=== PATIENT | female | born 1960 | race Caucasian/White ===

== ENCOUNTER → 2020-01-04 16:37 | Outpatient (CLI) | payer MEDICARE, SELFPAY ==
--- NOTE | ~2020-01-04 | XR_ITS ---
EXAMINATION: XR chest 2V EXAM DATE: 01/04/2020 16:56 INDICATION: Wheezing. TECHNIQUE: Frontal and lateral projections of the chest obtained and reviewed. Comparison is made to prior examination from 03/30/2019. FINDINGS: The lungs are clear. There are no pleural effusions. The cardiomediastinal silhouette is within normal limits. There is no pneumothorax suspected. Patient has diffuse idiopathic skeletal h yperostosis (DISH). IMPRESSION: No acute cardiopulmonary findings. Reviewed, dictated and finalized at location A.
== END ==
PROVIDERS: PCP Family Medicine; Visit Provider Nurse Practitioner Family
DX: R06.2 Wheezing (principal)
CPT/HCPCS: 71046

== ENCOUNTER 2020-05-04 10:16 | Outpatient (CLI) | payer MEDICARE, SELFPAY ==
[2020-05-04 10:41] LABS: Basophils Absolute Auto 0.1 K/mm3 (0.0-0.1); Basophils Percent Auto 0.8 % (0.2-1.2); Eosinophils Absolute Auto 0.2 K/mm3 (0-0.3); Eosinophils Percent Auto 2.5 % (0-4.4); Hematocrit 41.5 % (37.0-47.0); Hemoglobin 14.5 g/dL (12.0-15.0); Immature Granulocyte Absolute 0.01 K/mm3 (0.00-0.031); Immature Granulocyte Percent A 0.2 % (0-0.5); Lymphocytes Absolute Auto 1.37 K/mm3 (0.9-3.2); Lymphocytes Percent Auto 21.8 % (18.3-44.2); Mean Corpuscular HGB Conc 34.9 g/dl (32-36); Mean Corpuscular Hemoglobin 31.2 pg (26-34); Mean Corpuscular Volume 89.2 fl (80-100); Mean Platelet Volume 9.7 fl (7.4-10.4); Monocytes Absolute Auto 0.6 K/mm3 (0.1-0.6); Monocytes Percent Auto 9.2 % (2.6-8.5); Neutrophils Absolute Auto 4.1 K/mm3 (1.3-6.7); Neutrophils Percent Auto 65.5 % (45.5-73.1); Platelet Count Result 234 k/mm3 (150-375); Red Blood Count 4.65 M/mm3 (4.2-5.4); Red Cell Distribution Width 11.9 % (11.5-14.5); White Blood Count 6.3 K/mm3 (4.5-10.0)
[2020-05-04 10:54] LABS: Alanine Aminotransferase 38 U/L (4-35); Albumin Level 4.5 g/dL (3.5-5.1); Alkaline Phosphatase 63 U/L (38-126); Anion Gap 9 mmol/L (8-16); Aspartate Amino Transferase 33 U/L (14-36); Bilirubin,Total 0.9 mg/dL (0.2-1.3); Blood Urea Nitrogen 12 mg/dL (7-17); Calcium 9.2 mg/dL (8.4-10.2); Carbon Dioxide 32 mmol/L (22-30); Chloride 88 mmol/L (98-107); Cholesterol 125 mg/dL (0-200); Estimated Glomerular Filt Rate > 60; Glucose 113 mg/dL (65-105); HDL Direct 34 mg/dL; Potassium 2.9 mmol/L (3.4-5.0); Sodium 129 mmol/L (137-145); Triglycerides 96 mg/dL (<150)
[2020-05-04 10:57] LABS: Hemoglobin A1C 5.2 % (<5.7)
[2020-05-04 11:05] LABS: LDL Cholesterol Direct 65 mg/dL
== END 2020-05-04 10:17 | disposition home or self-care (01) ==
PROVIDERS: PCP Nurse Practitioner; Visit Provider Nurse Practitioner
DX: E78.5 Hyperlipidemia, unspecified (principal); I10 Essential (primary) hypertension; E11.9 Type 2 diabetes mellitus without complications
CPT/HCPCS: 36415; 80053; 80061; 83036; 85025

== ENCOUNTER 2020-08-07 11:49 | Outpatient (CLI) | payer MEDICARE, SELFPAY ==
--- NOTE | ~2020-08-07 | US_ITS ---
EXAMINATION: US carotid duplex BI DATE: 08/07/2020 12:33 INDICATION: Dizziness and giddiness. TECHNIQUE: Grayscale, color Doppler, and pulsed Doppler images of the cervical carotid arteries were obtained. The degree of vessel stenosis is placed in one of the following categories: normal, <50%, 5 0-69%, >=70% but less than near-occlusion, near-occlusion, or total occlusion. Note that percent sten osis relative to normal distal artery lumen diameter is indirectly measured from velocity measurement s as described by Domenico, et al. Radiology 2003; 229:340-346. COMPARISON: Ultrasound 05/27/2008 FINDINGS: RIGHT: The right common carotid artery (CCA) peak systolic velocity (PSV) is 115 cm/s. The right internal ca rotid artery (ICA) PSV is 99 cm/s. The right ICA end-diastolic velocity (EDV) is 32 cm/s. The right I CA/CCA PSV ratio is 0.9. Grayscale and color Doppler images yield an estimate of 0% diameter reductio n from plaque in the ICA. There is antegrade flow in the right vertebral artery. LEFT: The left CCA PSV is 102 cm/s. The left ICA PSV is 73 cm/s. The left ICA EDV is 21 cm/s. The left ICA/ CCA PSV ratio is 0.7. Grayscale and color Doppler images yield an estimate of 0% diameter reduction f rom plaque in the ICA. There is antegrade flow in the left vertebral artery. IMPRESSION: 1. Normal internal carotid arteries. Reviewed, dictated and finalized at location B. E FITTER
== END 2020-08-07 11:50 | disposition home or self-care (01) ==
PROVIDERS: PCP Family Medicine; Visit Provider Nurse Practitioner
DX: R42 Dizziness and giddiness (principal)
CPT/HCPCS: 93880

== ENCOUNTER 2020-09-04 08:58 | Outpatient (CLI) | payer MEDICARE, SELFPAY ==
--- NOTE | 2020-09-04 09:15 | EST_ITS ---
Patient Info Name: Perla Manzano Age: 60 years : 1960 Gender: Female Ht: 69 in Wt: 270 lbs BSA: 2.50 m2 Exam Date: 09/04/2020 9:29 AM Exam Location: [facility] Stress Patient Status: Outpatient Admit Date: 09/04/2020 Staff Ordering Physician: Danna Plaza NP Attending Provider: RICHARD SHERIDAN Exercise Technologist: Kriss May CT Exercise Physician: Richadr Sheridan DO Exam Type: CA stress test treadmill Study Info A regadenoson stress test was performed. Summary 1. 1. Negative Kuldip exercise stress test for ischemic ST changes by ECG criteria. However, patient achieved only 72% MPHR for age group which reduces sensitivity of the test. 2. 2. Reduced functional capacity, achieving 7 METs of workload. 3. 3. Appropriate HR response to exercise. 4. 4. Appropriate HR recovery at 1 minute post exercise. 5. 5. No imaging with stress testing. 6. 6. Patient informed of the above results. Protocol: Kuldip Stress ECG Details Stage: REST Duration (min): 54 min : 38 sec Speed (mph): 0.0 Grade (%): 0 HR (bpm): 53 SBP (mmHg): 121 DBP (mmHg): 66 METS: --- Stage: STAGE 1 Duration (min): 1 min : 0 sec Speed (mph): 1.7 Grade (%): 10 HR (bpm): 81 SBP (mmHg): 121 DBP (mmHg): 66 METS: --- Stage: STAGE 1 Duration (min): 2 min : 0 sec Speed (mph): 1.7 Grade (%): 10 HR (bpm): 94 SBP (mmHg): 121 DBP (mmHg): 66 METS: --- Stage: STAGE 1 Duration (min): 3 min : 0 sec Speed (mph): 1.7 Grade (%): 10 HR (bpm): 98 SBP (mmHg): 127 DBP (mmHg): 54 METS: --- Stage: STAGE 2 Duration (min): 1 min : 0 sec Speed (mph): 2.5 Grade (%): 12 HR (bpm): 107 SBP (mmHg): 127 DBP (mmHg): 54 METS: --- Stage: STAGE 2 Duration (min): 2 min : 0 sec Speed (mph): 2.5 Grade (%): 12 HR (bpm): 109 SBP (mmHg): 162 DBP (mmHg): 56 METS: --- Stage: STAGE 2 Duration (min): 2 min : 59 sec Speed (mph): 2.5 Grade (%): 12 HR (bpm): 113 SBP (mmHg): 162 DBP (mmHg): 56 METS: --- Stage: RECOVERY Duration (min): 1 min : 0 sec Speed (mph): 0.0 Grade (%): 0 HR (bpm): 96 SBP (mmHg): 162 DBP (mmHg): 56 METS: --- Stage: RECOVERY Duration (min): 2 min : 0 sec Speed (mph): 0.0 Grade (%): 0 HR (bpm): 80 SBP (mmHg): 162 DBP (mmHg): 56 METS: --- Stage: RECOVERY Duration (min): 2 min : 49 sec Speed (mph): 0.0 Grade (%): 0 HR (bpm): 65 SBP (mmHg): 150 DBP (mmHg): 67 METS: --- Rest HR: 53 bpm Peak HR: 114 bpm Rest Sys BP: 121 mmHg Peak Sys BP: 162 mmHg Max Pred HR: 158 bpm % Max Pred HR: 72 % Target HR: 134 bpm Max RPP: 18,468 bpm*mmHg Puga Score: 1 Termination Reason: Shortness of breath Cardiac Symptoms: Shortness of breath Max ST Seg Deviation: -1.00 mm Total Time: 5 min : 59 sec Rest Chung BP: 66 mmHg Peak Chung BP: 56 mmHg Angina Score: None Total METS: 7.1 Resting ECG Sinus rhyth
== END 2020-09-04 08:59 | disposition home or self-care (01) ==
LOC: ANHCARD 08:59
PROVIDERS: PCP Nurse Practitioner; Visit Provider Nurse Practitioner
DX: R42 Dizziness and giddiness (principal)
CPT/HCPCS: 93017

== ENCOUNTER 2020-11-07 10:09 | Outpatient (CLI) | payer MEDICARE, SELFPAY ==
[2020-11-07 10:41] LABS: Basophils Absolute Auto 0.1 K/mm3 (0.0-0.1); Basophils Percent Auto 0.8 % (0.2-1.2); Eosinophils Absolute Auto 0.2 K/mm3 (0-0.3); Eosinophils Percent Auto 2.2 % (0-4.4); Hematocrit 47.7 % (37.0-47.0); Hemoglobin 15.5 g/dL (12.0-15.0); Immature Granulocyte Absolute 0.02 K/mm3 (0.00-0.031); Immature Granulocyte Percent A 0.3 % (0-0.5); Lymphocytes Absolute Auto 1.74 K/mm3 (0.9-3.2); Lymphocytes Percent Auto 24.1 % (18.3-44.2); Mean Corpuscular HGB Conc 32.5 g/dl (32-36); Mean Corpuscular Hemoglobin 30.5 pg (26-34); Mean Corpuscular Volume 93.7 fl (80-100); Mean Platelet Volume 10.2 fl (7.4-10.4); Monocytes Absolute Auto 0.6 K/mm3 (0.1-0.6); Monocytes Percent Auto 8.4 % (2.6-8.5); Neutrophils Absolute Auto 4.6 K/mm3 (1.3-6.7); Neutrophils Percent Auto 64.2 % (45.5-73.1); Platelet Count Result 220 k/mm3 (150-375); Red Blood Count 5.09 M/mm3 (4.2-5.4); Red Cell Distribution Width 12.8 % (11.5-14.5); White Blood Count 7.2 K/mm3 (4.5-10.0)
[2020-11-07 10:53] LABS: Alanine Aminotransferase 17 U/L (4-35); Albumin Level 4.5 g/dL (3.5-5.1); Alkaline Phosphatase 57 U/L (38-126); Anion Gap 6 mmol/L (8-16); Aspartate Amino Transferase 24 U/L (14-36); Bilirubin,Total 0.6 mg/dL (0.2-1.3); Blood Urea Nitrogen 14 mg/dL (7-17); Calcium 9.7 mg/dL (8.4-10.2); Carbon Dioxide 28 mmol/L (22-30); Chloride 102 mmol/L (98-107); Cholesterol 155 mg/dL (0-200); Estimated Glomerular Filt Rate > 60; Glucose 91 mg/dL (65-105); HDL Direct 51 mg/dL; Potassium 4.4 mmol/L (3.4-5.0); Sodium 136 mmol/L (137-145); Triglycerides 61 mg/dL (<150)
[2020-11-07 11:04] LABS: LDL Cholesterol Direct 77 mg/dL
[2020-11-07 11:27] LABS: MALB Creatinine Ratio 20.2 mg/g (0-30); Microalbumin Urine Random 19.8 mg/L (0-16.7)
[2020-11-07 11:35] LABS: Hemoglobin A1C 5.1 % (<5.7)
[2020-11-11 06:34] LABS: Triiodothyronine T3 Free 2.6 pg/mL (2.3-4.2)
== END 2020-11-07 10:10 | disposition home or self-care (01) ==
LOC: ANHLAB 10:12
PROVIDERS: PCP Nurse Practitioner; Visit Provider Nurse Practitioner
DX: E78.5 Hyperlipidemia, unspecified (principal); I10 Essential (primary) hypertension; E03.9 Hypothyroidism, unspecified; E11.9 Type 2 diabetes mellitus without complications
CPT/HCPCS: 36415; 80053; 80061; 82043; 83036; 84436; 84443; 84481; 85025

== ENCOUNTER 2021-01-22 09:37 | Outpatient (CLI) | payer MEDICARE, SELFPAY | END 2021-01-22 09:38 | disposition home or self-care (01) | LOC: ANHAUDASC 09:38 | PROVIDERS: PCP Nurse Practitioner; Visit Provider Otolaryngology | DX: H93.13 Tinnitus, bilateral (principal); H69.83 Other specified disorders of Eustachian tube, bilateral; H90.3 Sensorineural hearing loss, bilateral | CPT/HCPCS: 92557; 92567 ==

== ENCOUNTER 2021-01-24 16:35 | Emergency (ER) | payer MEDICARE, SELFPAY ==
[2021-01-24 16:37] VITALS: BP 163/64; PULSE 68; RESP 18; TEMP 36.4; O2SAT 99
--- NOTE | 2021-01-24 16:49 | PC.NURSE ---
Pt unable to provide urine sample at this time, states will cont to try - fluids infusing, declined straight cath.
--- NOTE | 2021-01-24 17:04 | ED.GENADULT ---
HPI - General Adult General Chief complaint: Urogenital-Female <Kev Adame PA-C - Last Filed: 01/24/21 18:51> Stated complaint: dysuria <Kev Adame PA-C - Last Filed: 01/24/21 18:51> Time Seen by Provider: 01/24/21 16:45 <Kev Adame PA-C - Last Filed: 01/24/21 18:51> Source: patient and RN notes reviewed <Kev Adame PA-C - Last Filed: 01/24/21 18:51> Mode of arrival: ambulatory <DAPHNE Goff Last Filed: 01/24/21 18:51> Limitations: no limitations <Kev Adame PA-C - Last Filed: 01/24/21 18:51> History of Present Illness HPI narrative: Patient is 60-year-old female who presents with urinary frequency and urgency nausea and suprapubic abdominal discomfort that began on Friday has persisted has not been seen for this complaint notes the only similar occurrence was a urinary tract infection in the past patient on arrival is in no distress has not taken anything for her symptoms no she has also had some loose stools <Kev Adame PA-C - Last Filed: 01/24/21 18:51> Related Data Allergies/adverse reactions: Allergies Allergy/AdvReac Type Severity Reaction Status Date / Time No Known Allergies Allergy Verified 01/24/21 17:04 <Kev Adame PA-C - Last Filed: 01/24/21 18:51> Review of Systems Review of Systems: All systems reviewed & are unremarkable except as noted in HPI and below <Kev Adame PA-C - Last Filed: 01/24/21 18:51> [facility] Past Medical History Medical History: Medical History (Updated 01/24/21 @ 18:50 by Kev Adame PA-C) Hypertension <DAPHNE Goff Last Filed: 01/24/21 18:51> Social History Social History: Social History Gender identity (if verbalized by the patient): Female <DAPHNE Goff Last Filed: 01/24/21 18:51> Exam Narrative: Exam Narrative: GENERAL: Well-appearing, obese, and in no acute distress. HEAD: Normocephalic, atraumatic. EYES: PERRLA and EOMI. ENT: Nares clear, no rhinorrhea or epistaxis. Mucous membranes moist. CHEST: Clear to auscultation. No respiratory distress. No wheezes rales or rhonchi HEART: Regular rate and rhythm. No murmur heard. Normal peripheral pulses. ABDOMEN: Soft, lower abdominal tenderness to palpation without rebound or guarding, nondistended EXTREMITIES: Normal range of motion. No edema. SKIN: Warm, dry, no rash. NEURO: No focal deficits. Alert and oriented x3. PSYCH: Normal mood and affect. <DAPHNE Goff Last Filed: 01/24/21 18:51> Course Course Emergency Course: Patient in the room no distress will be discharged home treated for urinary tract infection no other high risk components to the evaluation patient is afebrile nontoxic-appearing no distress <DAPHNE Goff Last Filed: 01/24/21 18:51> Vital Signs Vital signs: Vital Signs Temperature 36.4 C 01/24/21 16:37 Pulse Rate 68 01/24/21 16:37 Respiratory Rate 18 01/24/21 16:37 Blood Pressure 163/64 H 01/24/21 16:37 Pulse Oximetry 99 01/24/21 16:37 Temperature 36.4 C 01/24/21 16:37 Pulse Rate 78 01/24/21 17:56 Respiratory Rate 17 01/24/21 17:56 Blood Pressure 147/89 H 01/24/21 17:56 Pulse Oximetry 96 01/24/21 17:56 <DAPHNE Goff Last Filed: 01/24/21 18:51> Vital Signs Temperature 36.4 C 01/24/21 16:37 Pulse Rate 68 01/24/21 16:37 Respiratory Rate 18 01/24/21 16:37 Blood Pressure 163/64 H 01/24/21 16:37 Pulse Oximetry 99 01/24/21 16:37 Temperature 36.4 C 01/24/21 16:37 Pulse Rate 78 01/24/21 17:56 Respiratory Rate 17 01/24/21 17:56 Blood Pressure 147/89 H 01/24/21 17:56 Pulse Oximetry 96 01/24/21 17:56 <Gabriella Estevez MD - Last Filed: 01/24/21 18:52> Medical Decision Making MDM Narrative Medical decision making narrative: Patient afebrile nontoxic-appearing no
[2021-01-24] MEDS: SODIUM CHLORIDE 0.9% IV 1,000 ML 999 ML IV CONT ×2 (17:06→17:57)
[2021-01-24 17:15] LABS: Basophils Percent Auto 0.6 % (0.2-1.2); Eosinophils Absolute Auto 0.2 K/mm3 (0-0.3); Eosinophils Percent Auto 2.3 % (0-4.4); Hematocrit 44.3 % (37.0-47.0); Hemoglobin 14.7 g/dL (12.0-15.0); Immature Granulocyte Absolute 0.01 K/mm3 (0.00-0.031); Immature Granulocyte Percent A 0.1 % (0-0.5); Lymphocytes Absolute Auto 1.54 K/mm3 (0.9-3.2); Lymphocytes Percent Auto 21.8 % (18.3-44.2); Mean Corpuscular HGB Conc 33.2 g/dl (32-36); Mean Corpuscular Hemoglobin 31.1 pg (26-34); Mean Corpuscular Volume 93.9 fl (80-100); Mean Platelet Volume 9.8 fl (7.4-10.4); Monocytes Absolute Auto 0.9 K/mm3 (0.1-0.6); Monocytes Percent Auto 13.3 % (2.6-8.5); Neutrophils Absolute Auto 4.4 K/mm3 (1.3-6.7); Neutrophils Percent Auto 61.9 % (45.5-73.1); Platelet Count Result 153 k/mm3 (150-375); Red Blood Count 4.72 M/mm3 (4.2-5.4); Red Cell Distribution Width 12.8 % (11.5-14.5); White Blood Count 7.1 K/mm3 (4.5-10.0)
[2021-01-24 17:24] LABS: Alanine Aminotransferase 16 U/L (4-35); Albumin Level 4.1 g/dL (3.5-5.1); Alkaline Phosphatase 54 U/L (38-126); Anion Gap 5 mmol/L (8-16); Aspartate Amino Transferase 26 U/L (14-36); Bilirubin,Total 0.7 mg/dL (0.2-1.3); Blood Urea Nitrogen 14 mg/dL (7-17); Calcium 9.3 mg/dL (8.4-10.2); Carbon Dioxide 32 mmol/L (22-30); Chloride 100 mmol/L (98-107); Estimated CRCL calculation 74 ml/min; Estimated Glomerular Filt Rate 56; Glucose 93 mg/dL (65-105); Lipase 56 U/L (23-300); Potassium 3.7 mmol/L (3.4-5.0); Sodium 137 mmol/L (137-145)
--- NOTE | 2021-01-24 17:45 | PC.NURSE ---
Pt unable to provide urine sample, declines straight cath, requesting more time to try. Fluids infusing.
[2021-01-24 17:56] VITALS: BP 147/89; PULSE 78; RESP 17; O2SAT 96
[2021-01-24 18:26] LABS: Add Urine Microscopic? YES; Appearance Urine Cloudy (Clear); Bacteria Urine Trace /hpf; Bilirubin Urine Negative (Negative); Blood Urine 1+ (Negative); Color Urine Yellow (Yellow); Glucose Urine UA Negative (Negative); Ketones Urine Negative (Negative); Leukocyte Esterase Ur 3+ LEU/UL (Negative); Mucus Urine Rare /lpf; Nitrate Urine Negative (Negative); Protein Urine Negative (Negative); Squamous Epithelial Cell Urine Many /hpf (Few); Urobilinogen Urine Negative mg/dL (<2.0); WBC Urine 31-50 /hpf
[2021-01-24 18:57] VITALS: BP 138/64; PULSE 68; RESP 15; O2SAT 100
== END 2021-01-24 19:04 | disposition home or self-care (01) ==
PROVIDERS: Emergency Medicine Emergency Medical Services; Emergency Provider Emergency Medicine; PCP Nurse Practitioner
DX: N39.0 Urinary tract infection, site not specified (principal); I10 Essential (primary) hypertension
CPT/HCPCS: 36415; 80053; 81001; 83690; 85025; 87086; 96361; 96365; 99284; J0131; J7030

== ENCOUNTER 2021-05-03 11:37 | Outpatient (CLI) | payer MEDICARE, SELFPAY ==
[2021-05-03 13:32] LABS: Hemoglobin A1C 5.5 % (<5.7)
[2021-05-03 14:54] LABS: Free T4 Free Thyroxine 0.87 ng/mL (0.78-2.19)
== END 2021-05-03 11:38 | disposition home or self-care (01) ==
PROVIDERS: PCP Nurse Practitioner; Visit Provider Internal Medicine Endocrinology, Diabetes & Metabolism
DX: E03.9 Hypothyroidism, unspecified (principal); R73.03 Prediabetes
CPT/HCPCS: 36415; 83036; 84439; 84443

== ENCOUNTER 2021-06-25 13:47 | Outpatient (CLI) | payer MEDICARE, SELFPAY ==
--- NOTE | ~2021-06-25 | XR_ITS ---
EXAMINATION: XR chest 2V EXAM DATE: 06/25/2021 14:09 INDICATION: R06.02 -Shortness of breath. Hypertension. History of asthma. TECHNIQUE: Frontal and lateral projections of the chest obtained and reviewed. Comparison is made to prior examination from 01/04/2020. FINDINGS: The lungs are clear. There are no pleural effusions. The cardiomediastinal silhouette is within normal limits. There is no pneumothorax suspected. Small to moderate-sized endplate osteophy luciano. IMPRESSION: No acute cardiopulmonary findings. Reviewed, dictated and finalized at location B.
== END 2021-06-25 13:48 | disposition home or self-care (01) ==
LOC: ANHIMG 13:54
PROVIDERS: PCP Nurse Practitioner; Visit Provider Nurse Practitioner
DX: R06.02 Shortness of breath (principal)
CPT/HCPCS: 71046

== ENCOUNTER 2022-03-07 11:03 | Outpatient (CLI) | payer MEDICARE, SELFPAY ==
[2022-03-07 11:32] LABS: Basophils Absolute Auto 0.1 K/mm3 (0.0-0.1); Basophils Percent Auto 0.8 % (0.2-1.2); Eosinophils Absolute Auto 0.2 K/mm3 (0-0.3); Eosinophils Percent Auto 1.6 % (0-4.4); Hematocrit 44.6 % (37.0-47.0); Hemoglobin 14.5 g/dL (12.0-15.0); Immature Granulocyte Absolute 0.03 K/mm3 (0.00-0.031); Immature Granulocyte Percent A 0.3 % (0-0.5); Lymphocytes Absolute Auto 1.94 K/mm3 (0.9-3.2); Lymphocytes Percent Auto 19.1 % (18.3-44.2); Mean Corpuscular HGB Conc 32.5 g/dl (32-36); Mean Corpuscular Hemoglobin 30.9 pg (26-34); Mean Corpuscular Volume 94.9 fl (80-100); Mean Platelet Volume 10.2 fl (7.4-10.4); Monocytes Percent Auto 9.3 % (2.6-8.5); Neutrophils Percent Auto 68.9 % (45.5-73.1); Platelet Count Result 198 k/mm3 (150-375); Red Cell Distribution Width 12.9 % (11.5-14.5); White Blood Count 10.2 K/mm3 (4.5-10.0)
[2022-03-07 11:40] LABS: Alanine Aminotransferase 20 U/L (6-35); Albumin Level 4.4 g/dL (3.5-5.1); Alkaline Phosphatase 67 U/L (38-126); Anion Gap 5 mmol/L (8-16); Aspartate Amino Transferase 22 U/L (14-36); Bilirubin,Total 0.5 mg/dL (0.2-1.3); Blood Urea Nitrogen 18 mg/dL (7-17); Calcium 9.2 mg/dL (8.4-10.2); Carbon Dioxide 26 mmol/L (22-30); Chloride 103 mmol/L (98-107); Cholesterol 172 mg/dL (0-200); Estimated Glomerular Filt Rate > 60; Glucose 87 mg/dL (65-110); HDL Direct 48 mg/dL; Potassium 4.3 mmol/L (3.4-5.0); Sodium 134 mmol/L (137-145); Triglycerides 148 mg/dL (<150)
[2022-03-07 11:51] LABS: LDL Cholesterol Direct 84 mg/dL
== END 2022-03-07 11:04 | disposition home or self-care (01) ==
LOC: ANHLAB 11:05
PROVIDERS: PCP Family Medicine; Visit Provider Nurse Practitioner
DX: E78.5 Hyperlipidemia, unspecified (principal); I10 Essential (primary) hypertension; E03.9 Hypothyroidism, unspecified
CPT/HCPCS: 36415; 80053; 80061; 84443; 85025

== ENCOUNTER 2022-03-18 13:06 | Outpatient (CLI) | payer MEDICARE, SELFPAY ==
[2022-03-18 13:40] LABS: Appearance Urine Clear (Clear); Bilirubin Urine Negative (Negative); Blood Urine Negative (Negative); Color Urine Yellow (Yellow); Glucose Urine UA Negative (Negative); Ketones Urine Negative (Negative); Leukocyte Esterase Ur 1+ LEU/UL (Negative); Nitrate Urine Negative (Negative); Protein Urine Negative (Negative); Specific Grav Ur <= 1.005 (1.001-1.035); Urobilinogen Urine 0.2 mg/dL (<2.0)
[2022-03-18 14:06] LABS: Mucus Urine Rare /lpf; RBC Urine 0-2 /hpf (0-2); Squamous Epithelial Cell Urine Occasional /hpf (Few); WBC Urine 0-3 /hpf
[2022-03-18 14:10] LABS: Add Urine Microscopic? YES
== END 2022-03-18 13:07 | disposition home or self-care (01) ==
PROVIDERS: PCP Family Medicine; Visit Provider Nurse Practitioner
DX: R39.9 Unspecified symptoms and signs involving the genitourinary system (principal)
CPT/HCPCS: 81001

== ENCOUNTER 2022-03-21 15:38 | Outpatient (CLI) | payer MEDICARE, SELFPAY ==
--- NOTE | ~2022-03-21 | CT_ITS ---
EXAMINATION: CT brain wo con DATE: 03/21/2022 15:57 INDICATION: New onset memory loss TECHNIQUE: Computed tomography (CT) of the head was performed without intravenous contrast. The mA wa s adjusted according to patient size. Iterative reconstruction technique was employed. Exam dose: 60 5.33 mGy-cm total exam DLP. COMPARISON: 05/27/2008 MRI brain/brainstem FINDINGS: No intracranial mass lesion or hemorrhage or cerebrovascular accident. No midline shift or mass effect. Normal duong-white matter differentiation. Normal ventricular size. No subdural or epidur al hematoma. Likely old blowout fracture medial wall of the left orbit. No fracture or bone destruction of the aircraft design engineer nial vault. Mastoid air cells and included paranasal sinuses are unremarkable with the exception of e ncroachment upon the left ethmoid region by left medial orbital blowout fracture. IMPRESSION: Likely old medial left orbital wall blowout fracture No recent skull fracture No significant intracranial abnormality Reviewed, dictated and finalized at Location A. Reviewed, dictated and finalized at location B.
== END 2022-03-21 15:39 | disposition home or self-care (01) ==
PROVIDERS: PCP Family Medicine; Visit Provider Nurse Practitioner
DX: R41.3 Other amnesia (principal)
CPT/HCPCS: 70450

== ENCOUNTER 2022-07-02 14:09 | Outpatient (CLI) | payer MEDICARE, SELFPAY ==
[2022-07-02 19:44] LABS: Basophils Absolute Auto 0.1 K/mm3 (0.0-0.1); Eosinophils Absolute Auto 0.3 K/mm3 (0-0.3); Eosinophils Percent Auto 2.4 % (0-4.4); Hematocrit 46.5 % (37.0-47.0); Immature Granulocyte Absolute 0.03 K/mm3 (0.00-0.031); Immature Granulocyte Percent A 0.3 % (0-0.5); Lymphocytes Absolute Auto 2.16 K/mm3 (0.9-3.2); Lymphocytes Percent Auto 20.7 % (18.3-44.2); Mean Corpuscular HGB Conc 32.3 g/dl (32-36); Mean Corpuscular Hemoglobin 30.7 pg (26-34); Mean Corpuscular Volume 95.1 fl (80-100); Mean Platelet Volume 10.5 fl (7.4-10.4); Monocytes Absolute Auto 1.1 K/mm3 (0.1-0.6); Neutrophils Absolute Auto 6.9 K/mm3 (1.3-6.7); Neutrophils Percent Auto 65.6 % (45.5-73.1); Platelet Count Result 228 k/mm3 (150-375); Red Blood Count 4.89 M/mm3 (4.2-5.4); Red Cell Distribution Width 12.8 % (11.5-14.5); White Blood Count 10.5 K/mm3 (4.5-10.0)
[2022-07-02 19:46] LABS: Alanine Aminotransferase 26 U/L (6-35); Albumin Level 4.5 g/dL (3.5-5.1); Alkaline Phosphatase 56 U/L (38-126); Anion Gap 14 mmol/L (8-16); Aspartate Amino Transferase 27 U/L (14-36); Bilirubin,Total 0.6 mg/dL (0.2-1.3); Blood Urea Nitrogen 12 mg/dL (7-17); Calcium 8.9 mg/dL (8.4-10.2); Carbon Dioxide 25 mmol/L (22-30); Chloride 97 mmol/L (98-107); Estimated Glomerular Filt Rate 56; Glucose 95 mg/dL (65-110); Potassium 3.6 mmol/L (3.4-5.0); Sodium 136 mmol/L (137-145)
== END 2022-07-02 14:10 | disposition home or self-care (01) ==
LOC: ANHGOSHLAB 14:11
PROVIDERS: PCP Family Medicine; Visit Provider Nurse Practitioner
DX: R10.9 Unspecified abdominal pain (principal); R53.83 Other fatigue
CPT/HCPCS: 36415; 80053; 85025; 87086; 87088; 87147

== ENCOUNTER → 2022-07-02 14:19 | Outpatient (CLI) | payer MEDICARE, SELFPAY ==
--- NOTE | ~2022-07-02 | XR_ITS ---
EXAMINATION: XR abdomen/kub 1V DATE: 07/02/2022 14:41 INDICATION: Unspecified abdominal pain. Right flank pain. TECHNIQUE: A supine view of the abdomen was obtained. COMPARISON: CT abdomen and pelvis 03/30/2019 FINDINGS: There are no dilated loops of bowel. There is no visible urolithiasis. There are phlebolith s in the pelvis. IMPRESSION: 1. Normal bowel gas pattern. Reviewed, dictated and finalized at location A.
== END ==
PROVIDERS: PCP Nurse Practitioner; Visit Provider Nurse Practitioner
DX: R10.9 Unspecified abdominal pain (principal)
CPT/HCPCS: 36415; 74018; 80053; 85025; 87086; 87088; 87147

== ENCOUNTER 2022-08-06 11:15 | Outpatient (NON) | payer MEDICARE, SELFPAY | END 2022-08-06 11:16 | disposition home or self-care (01) | LOC: ANHGOSHLAB 11:16 | PROVIDERS: PCP Nurse Practitioner; Visit Provider Nurse Practitioner | DX: N39.0 Urinary tract infection, site not specified (principal) | CPT/HCPCS: 87086; 87088 ==

== ENCOUNTER 2022-10-04 10:09 | Outpatient (CLI) | payer MEDICARE, SELFPAY ==
[2022-10-04 19:21] LABS: Basophils Absolute Auto 0.1 K/mm3 (0.0-0.1); Basophils Percent Auto 1.4 % (0.2-1.2); Eosinophils Absolute Auto 0.2 K/mm3 (0-0.3); Eosinophils Percent Auto 2.1 % (0-4.4); Hematocrit 48.9 % (37.0-47.0); Hemoglobin 15.6 g/dL (12.0-15.0); Immature Granulocyte Absolute 0.02 K/mm3 (0.00-0.031); Immature Granulocyte Percent A 0.2 % (0-0.5); Lymphocytes Absolute Auto 1.52 K/mm3 (0.9-3.2); Lymphocytes Percent Auto 17.6 % (18.3-44.2); Mean Corpuscular HGB Conc 31.9 g/dl (32-36); Mean Corpuscular Hemoglobin 30.5 pg (26-34); Mean Corpuscular Volume 95.5 fl (80-100); Mean Platelet Volume 10.2 fl (7.4-10.4); Monocytes Absolute Auto 0.9 K/mm3 (0.1-0.6); Monocytes Percent Auto 10.1 % (2.6-8.5); Neutrophils Absolute Auto 5.9 K/mm3 (1.3-6.7); Neutrophils Percent Auto 68.6 % (45.5-73.1); Platelet Count Result 229 k/mm3 (150-375); Red Blood Count 5.12 M/mm3 (4.2-5.4); Red Cell Distribution Width 13.1 % (11.5-14.5); White Blood Count 8.7 K/mm3 (4.5-10.0)
[2022-10-04 19:50] LABS: Alanine Aminotransferase 24 U/L (6-35); Albumin Level 4.3 g/dL (3.5-5.1); Alkaline Phosphatase 65 U/L (38-126); Anion Gap 8 mmol/L (8-16); Aspartate Amino Transferase 25 U/L (14-36); Bilirubin,Total 0.6 mg/dL (0.2-1.3); Blood Urea Nitrogen 16 mg/dL (7-17); Calcium 9.7 mg/dL (8.4-10.2); Carbon Dioxide 31 mmol/L (22-30); Chloride 101 mmol/L (98-107); Estimated Glomerular Filt Rate 56; Glucose 80 mg/dL (65-110); Potassium 4.5 mmol/L (3.4-5.0); Sodium 140 mmol/L (137-145)
[2022-10-04 19:53] LABS: NT Pro B Type Natriuretic Pept 21 pg/mL (19.9-100)
[2022-10-04 22:35] LABS: Free T4 Free Thyroxine Reflex 0.98 ng/dL (0.78-2.19)
[2022-10-04 23:37] LABS: Total Triiodothyronine (T3) 1.31 NG/ML (0.97-1.69)
== END 2022-10-04 10:10 | disposition home or self-care (01) ==
LOC: ANHGOSHLAB 10:10
PROVIDERS: PCP Family Medicine; Visit Provider Nurse Practitioner
DX: R53.83 Other fatigue (principal); R06.02 Shortness of breath; R42 Dizziness and giddiness; E03.9 Hypothyroidism, unspecified; R63.5 Abnormal weight gain
CPT/HCPCS: 36415; 80053; 83880; 84439; 84443; 84480; 85025

== ENCOUNTER → 2022-10-04 10:30 | Outpatient (CLI) | payer MEDICARE, SELFPAY ==
--- NOTE | ~2022-10-04 | XR_ITS ---
Thoracic spine: Clinical Indication: Pain AP and lateral views were performed. No fracture is seen. There is normal alignment of the vertebrae. Flowing anterior osteophytes are pr esent with preservation of disc spaces. Paravertebral soft tissues appear normal. Impression: DISH of the thoracic spine. No fracture or subluxation seen. Reviewed, dictated and finalized at location . ICAL CHECKER Impression: DISH of the thoracic spine. No fracture or subluxation seen.
--- NOTE | ~2022-10-04 | XR_ITS ---
AP view of the pelvis and AP and lateral views of the right hip Clinical history: Pain Findings: No acute fracture or dislocation is seen. Osseous alignment is anatomic. Bilateral hip and SI joint spaces are preserved. Degenerative changes of the lower lumbar spine are noted. Soft tissues are unremarkable. Impression: No fracture or dislocation. Degenerative change at the lower lumbar spine. Reviewed, dictated and finalized at location . ICAL ENDOSCOPIST Impression: No fracture or dislocation. Degenerative change at the lower lumbar spine.
== END ==
PROVIDERS: PCP Nurse Practitioner; Visit Provider Nurse Practitioner
DX: M48.14 Ankylosing hyperostosis [Forestier], thoracic region (principal); M51.36 Other intervertebral disc degeneration, lumbar region; M25.551 Pain in right hip
CPT/HCPCS: 72072; 73502

== ENCOUNTER 2022-10-08 08:30 | Outpatient (CLI) | payer MEDICARE, SELFPAY ==
--- NOTE | 2022-10-08 11:30 | NEURO_ITS ---
Impression: # Complains of numbness of hands # Bilateral Carpal Tunnel Syndrome, left more than right. # No ulnar neuropathy. # Normal needle/EMG exam. Motor Nerve Conduction Upper Extremities Median Nerve Conduction Velocity (m/sec) Terminal Latency (msec) Response Voltage(mV) Elbow-Wrist Wrist Elbow Wrist Right 56 4.7 1 1 Left 56 5.1 2 3 Ulnar Nerve Conduction Velocity (m/sec) Terminal Latency (msec) Response Voltage(mV) Above Elbow Below Elbow Wrist Above Elbow Below Elbow Wrist Right 55 2.5 5 7 Left 56 3.0 3 7 F-Wave Latency Median (ms) Ulnar (ms) Right 29.3 28.2 Left 30.0 28.0 Sensory Nerve Conduction Upper Extremities Median Nerve Stimulation Terminal Latency (msec) Wrist/Digit Response Voltage (uV) Wrist Right 3.8/4.2 11/13 Left 4.0/4.2 32/21 Ulnar Nerve Stimulation Terminal Latency (msec) Wrist/Digit Response Voltage (uV) Wrist Right 2.6 42 Left 2.5 36 Radial Nerve Terminal Latency (msec) Response Voltage(mV) Right 2.2 10 Left 2.3 16 Left Right Muscles Examined Fibrillation Fasciculation Scarcity Voltage Duration Left Right Left Right Left Right Left Right Left Right Deltoid Biceps X X Brachioradialis Triceps X X Pronator Teres X X Ext Indicis X X Ext Digitorum X X Abd Poll Brev X X 1st Dorsal Interosseus X X Abd Dig Min MTDD
== END 2022-10-08 08:31 | disposition home or self-care (01) ==
PROVIDERS: PCP Nurse Practitioner; Visit Provider Nurse Practitioner
DX: R20.0 Anesthesia of skin (principal); G56.03 Carpal tunnel syndrome, bilateral upper limbs
CPT/HCPCS: 95886; 95911

== ENCOUNTER 2022-10-21 08:17 | Outpatient (CLI) | payer MEDICARE, SELFPAY ==
--- NOTE | 2022-10-21 08:57 | ECHO_ITS ---
Patient Info Name: Perla Manzano Age: 62 years : 1960 Gender: Female Ht: 69 in Wt: 312 lbs BSA: 2.70 m2 HR: 67 bpm BP: 129 / 85 mmHg Technical Quality: Fair Exam Date: 10/21/2022 9:20 AM Exam Location: [facility] Patient Status: Outpatient Admit Date: 10/21/2022 Staff Ordering Physician: Danna Plaza NP Roll Grinder Operator: Joana Leos RDCS Attending Provider: Danna Plaza NP Referring Physician: Bola DAVIDSON; Exam Type: CA echo doppler color flow Study Info Indications R42 - Dizziness and giddiness Complete two-dimensional, color flow and Doppler transthoracic echocardiogram is performed. Summary 1. Complete two-dimensional, color flow and Doppler transthoracic echocardiogram is performed. 2. Left ventricular chamber dimension is normal. 3. Left ventricular systolic function is normal, estimated at 60-65%. 4. There is mild concentric increased left ventricular wall thickness. 5. The left ventricular diastolic function is grade I diastolic dysfunction. 6. E/e' 7 is not elevated. 7. Global longitudinal strain is normal at -17.4%. 8. There is mild aortic valve sclerosis. 9. There is trace aortic valve regurgitation. 10. No pulmonary hypertension, estimated pulmonary arterial systolic pressure is 29 mmHg. Left Ventricle E/e' 7 is not elevated. Global longitudinal strain is normal at -17.4%. Left ventricular chamber dimension is normal. Left ventricular systolic function is normal, estimated at 60-65%. There is mild concentric increased left ventricular wall thickness. The left ventricular diastolic function is grade I diastolic dysfunction. Right Ventricle Right ventricular systolic function is normal and with normal TAPSE 2.1 cm.. Right ventricular chamber dimension is normal. Left Atria Left atrial chamber dimension is normal. Right Atria Right atrial chamber dimension is normal. Aortic Valve The aortic valve is trileaflet. There is mild aortic valve sclerosis. There is no aortic valve stenosis. There is trace aortic valve regurgitation. Pulmonic Valve There is no pulmonic regurgitation. Mitral Valve There is no mitral valve stenosis. There is no mitral valve regurgitation. Tricuspid Valve There is no tricuspid valve regurgitation. No pulmonary hypertension, estimated pulmonary arterial systolic pressure is 29 mmHg. Pericardium/Pleural There is no pericardial effusion. Inferior Vena Cava Normal inferior vena cava with >50% collapse upon inspiration consistent with normal right atrial pressure, 5 mmHg. Aorta The aortic root size at the sinus of Valsalva is normal. Left Ventricular Outflow Tract Name Value Normal LVOT 2D LVOT Diameter 2.0 cm LVOT Doppler LVOT Peak Gradient 6 mmHg LVOT Mean Gradient 4 mmHg LVOT VTI 30 cm LVOT VTI/AV VTI Ratio 1.0 LVOT Stroke Volume 91 ml LVOT CO 5.3 l/min LVOT CI 2.0 l/min/m2 Pulmonic Valve
== END 2022-10-21 08:18 | disposition home or self-care (01) ==
LOC: ANHCARD 08:19
PROVIDERS: PCP Nurse Practitioner; Visit Provider Nurse Practitioner
DX: R42 Dizziness and giddiness (principal); R06.09 Other forms of dyspnea
CPT/HCPCS: 93306

== ENCOUNTER 2022-11-22 10:08 | Outpatient (CLI) | payer MEDICARE, SELFPAY ==
[2022-11-22 10:31] LABS: Kit Draw Collected
== END 2022-11-22 10:09 | disposition home or self-care (01) ==
LOC: ANHGOSHLAB 10:10
PROVIDERS: PCP Nurse Practitioner; Visit Provider Nurse Practitioner
DX: E03.9 Hypothyroidism, unspecified (principal)
CPT/HCPCS: 36415

== ENCOUNTER 2022-12-05 08:59 | Outpatient (CLI) | payer MEDICARE, SELFPAY ==
--- NOTE | ~2022-12-05 | NM_ITS ---
EXAMINATION: NM torie stress w perfusion DATE: 12/05/2022 11:31 INDICATION: Dyspnea TECHNIQUE: Rest images were obtained following intravenous administration of 10 mCi Tc99m tetrofosmin (Myoview). The patient was infused intravenously with Lexiscan (Regadenoson). Then, 33 mCi Tc99m tet rofosmin (Myoview) was administered intravenously, and stress images were obtained in both supine and prone position. Data was reconstructed into short axis and horizontal and vertical long axis SPECT i mages. Gated SPECT images were also obtained. COMPARISON: None. FINDINGS: There is diaphragmatic attenuation artifact along the inferior wall on the supine rest and post stress images which normalizes on the prone post stress imaging. There is no definite reversible or fixed perfusion abnormality to suggest ischemia or infarction. There is normal left ventricular chamber size, wall motion and ejection fraction. Left ventricular ejection fraction measures >70%. IMPRESSION: 1. Normal myocardial perfusion at rest and during stress. 2. Left ventricular ejection fraction measuring >70%. Reviewed, dictated and finalized at location A.
--- NOTE | 2022-12-05 09:14 | EST_ITS ---
Patient Info Name: Perla Manzano Age: 62 years : 1960 Gender: Female Ht: 69 in Wt: 350 lbs BSA: 2.87 m2 HR: 59 bpm BP: 204 / 98 mmHg Heart Rhythm: Sinus Rhythm Exam Date: 12/05/2022 10:04 AM Exam Location: [facility] Stress Patient Status: Outpatient Admit Date: 12/05/2022 Staff Ordering Physician: Richard Sheridan DO Attending Provider: Richard Sheridan DO Exercise Technologist: Kriss May CT Exercise Physician: Richard Sheridan DO Exam Type: CA stress torie w NM Study Info Indications R06.00 - Dyspnea, unspecified A regadenoson stress test was performed. Summary 1. 1. Negative lexiscan stress test for ischemic ST changes by ECG criteria. 2. 2. Baseline hypertension. 3. 3. Nuclear scan to follow and will be reported separately. Please correlate with it. 4. 4. Patient informed of the above results. Protocol: Lexiscan Stress ECG Details Stage: REST Duration (min): 4 min : 31 sec HR (bpm): 60 SBP (mmHg): 204 DBP (mmHg): 88 Stage: REST Duration (min): 8 min : 46 sec HR (bpm): 58 SBP (mmHg): 204 DBP (mmHg): 88 Stage: STAGE 1 Duration (min): 1 min : 0 sec HR (bpm): 76 SBP (mmHg): 204 DBP (mmHg): 88 Stage: RECOVERY Duration (min): 1 min : 0 sec HR (bpm): 76 SBP (mmHg): 193 DBP (mmHg): 80 Stage: RECOVERY Duration (min): 2 min : 0 sec HR (bpm): 74 SBP (mmHg): 193 DBP (mmHg): 80 Stage: RECOVERY Duration (min): 3 min : 0 sec HR (bpm): 75 SBP (mmHg): 193 DBP (mmHg): 80 Stage: RECOVERY Duration (min): 3 min : 36 sec HR (bpm): 73 SBP (mmHg): 178 DBP (mmHg): 83 Rest HR: 58 bpm Peak HR: 78 bpm Rest Sys BP: 204 mmHg Peak Sys BP: 193 mmHg Max Pred HR: 156 bpm % Max Pred HR: 50 % Target HR: 133 bpm Max RPP: 15,054 bpm*mmHg Termination Reason: Completed protocol Cardiac Symptoms: Shortness of breath Total Time: 1 min : 0 sec Rest Chung BP: 88 mmHg Peak Chung BP: 80 mmHg Total Dose: 0.4 mg Resting ECG Sinus rhythm, borderline T wave in high lateral leads. Stress ECG No ST changes. Arrhythmias None. Report Signatures
== END 2022-12-05 09:00 | disposition home or self-care (01) ==
PROVIDERS: PCP Nurse Practitioner; Visit Provider Internal Medicine Cardiovascular Disease
DX: R06.09 Other forms of dyspnea (principal)
CPT/HCPCS: 78452; 93017; A9502; J2785

== ENCOUNTER 2022-12-06 18:16 | Emergency (ER) | payer MEDICARE, SELFPAY ==
[2022-12-06] VITALS (11 sets, daily range): BP systolic 152–200; BP diastolic 56–78; PULSE 60–71; RESP 17–23; TEMP 36.5; O2SAT 97–100
--- NOTE | ~2022-12-06 | XR_ITS ---
XR chest 2V DATE: 12/06/2022 22:15 INDICATION: Shortness of breath, dizziness, hypertension TECHNIQUE: AP and lateral views COMPARISON: 06/25/2021 PA and lateral chest FINDINGS: Normal heart size. No hilar or mediastinal enlargement. No pulmonary infiltrate or consolid ation, pleural effusion or pulmonary vascular congestion or pneumothorax. Degenerative spurring of the thoracic spine. IMPRESSION: No active cardiopulmonary disease Reviewed, dictated and finalized at location A.
--- NOTE | 2022-12-06 18:29 | ECG_ITS ---
Measurements Intervals [place] Rate: 61 P: 51 UT: 200 QRS: 19 QRSD: 83 T: 76 QT: 372 QTc: 377 Interpretive Statements SINUS RHYTHM BASELINE ARTIFACT LOW-VOLTAGE QRS IN PRECORDIAL LEADS BORDERLINE ECG COMPARED TO ECG 03/30/2019 17:02:50 NO SIGNIFICANT CHANGES Electronically Signed On 12-07-2022 15:16:53 CDT by Georges Araya M.D.
[2022-12-06 19:47] LABS: Basophils Absolute Auto 0.1 K/mm3 (0.0-0.1); Basophils Percent Auto 0.7 % (0.2-1.2); Eosinophils Absolute Auto 0.3 K/mm3 (0-0.3); Eosinophils Percent Auto 2.9 % (0-4.4); Hematocrit 44.4 % (37.0-47.0); Hemoglobin 14.2 g/dL (12.0-15.0); Immature Granulocyte Absolute 0.03 K/mm3 (0.00-0.031); Immature Granulocyte Percent A 0.3 % (0-0.5); Lymphocytes Absolute Auto 1.81 K/mm3 (0.9-3.2); Lymphocytes Percent Auto 18.5 % (18.3-44.2); Mean Corpuscular Hemoglobin 30.9 pg (26-34); Mean Corpuscular Volume 96.7 fl (80-100); Mean Platelet Volume 9.9 fl (7.4-10.4); Monocytes Absolute Auto 0.9 K/mm3 (0.1-0.6); Monocytes Percent Auto 8.9 % (2.6-8.5); Neutrophils Absolute Auto 6.7 K/mm3 (1.3-6.7); Neutrophils Percent Auto 68.7 % (45.5-73.1); Platelet Count Result 187 k/mm3 (150-375); Red Blood Count 4.59 M/mm3 (4.2-5.4); Red Cell Distribution Width 12.5 % (11.5-14.5); White Blood Count 9.8 K/mm3 (4.5-10.0)
[2022-12-06 19:56] LABS: Alanine Aminotransferase 25 U/L (6-35); Albumin Level 4.2 g/dL (3.5-5.1); Alkaline Phosphatase 68 U/L (38-126); Anion Gap 7 mmol/L (8-16); Aspartate Amino Transferase 24 U/L (14-36); Bilirubin,Total 0.5 mg/dL (0.2-1.3); Blood Urea Nitrogen 13 mg/dL (7-17); Calcium 9.3 mg/dL (8.4-10.2); Carbon Dioxide 25 mmol/L (22-30); Chloride 105 mmol/L (98-107); Estimated CRCL calculation 96 ml/min; Estimated Glomerular Filt Rate > 60; Glucose 119 mg/dL (65-110); Potassium 3.8 mmol/L (3.4-5.0); Sodium 137 mmol/L (137-145)
--- NOTE | 2022-12-06 21:48 | PC.NURSE ---
EDP at bedside to assess pt.
--- NOTE | 2022-12-06 21:49 | ED.DIZZY ---
HPI - Dizziness General Chief Complaint: Dizziness <Kelli Mota PA-C - Last Filed: 12/07/22 01:36> Stated Complaint: dizzy/lightheadedness <Kelli Mota PA-C - Last Filed: 12/07/22 01:36> Time Seen by Provider: 12/06/22 21:13 <DAPHNE Borden Last Filed: 12/07/22 01:36> History of Present Illness HPI Narrative: Patient is a 62-year-old female with a history of hypertension, asthma, hypothyroidism, hyperlipidemia here due to generalized weakness, shortness of breath, dizziness with position changes of the head x 1 day. Patient states that she had a chemical stress test yesterday that was reportedly reassuring but since the test she has had the symptoms above. She has felt congested and had has had a cough and nasal drainage for the past 5 days, was treated with prednisone by her PCP with transient improvement but she finished her course yesterday and the symptoms have since returned. She denies any chest pain; stress test was ordered due to LVH on her EKG. she has chronic tinnitus and has seen ENT; denies hx of dizziness. <DAPHNE Borden Last Filed: 12/07/22 01:36> Related Data Home Medications: Home Medications Medication Instructions Recorded Confirmed phentermine 37.5 mg capsule 37.5 mg PO DAILY 07/02/22 11/25/22 <DAPHNE Borden Last Filed: 12/07/22 01:36> Allergies/Adverse Reactions: Allergies Allergy/AdvReac Type Severity Reaction Status Date / Time No Known Allergies Allergy Verified 12/06/22 21:20 <Kelli Mota PA-C - Last Filed: 12/07/22 01:36> Review of Systems Review of Systems: Gen.: Reports lightheadedness Eyes: Denies eye pain or visual change ENT: Denies congestion Respiratory: Reports shortness of breath and cough CV: Denies chest pain or palpitations GI: Denies abdominal pain nausea, emesis or diarrhea denies burning, urgency, frequency or hematuria Musculoskeletal: Denies back pain or muscle pain Neuro: Denies numbness, tingling, weakness or focal weakness Skin: Denies rash Except as documented, all other systems reviewed and negative <Kelli Mota PA-C - Last Filed: 12/07/22 01:36> REPLACED BY [facility] Past Medical History Medical History: Medical History Adult hypothyroidism Anxiety Asthma Chronic sinusitis De Quervain's tenosynovitis, right Diverticulosis Essential (primary) hypertension History of COVID-19 History of diabetes mellitus Resolved with weight loss. Last A1C 5.2 07/24/2020. Hypertension Obstructive sleep apnea (adult) (pediatric) Other and unspecified hyperlipidemia Varicose veins of both lower extremities Vitamin D deficiency <Kelli Mota PA-C - Last Filed: 12/07/22 01:36> Surgical History Surgical History: Surgical History H/O: hysterectomy (~2003) <Kelli Mota PA-C - Last Filed: 12/07/22 01:36> Family History Family History: Family History Mother Family history of pancreatic cancer Family history of heart disease in male family member before age 55 Family history of cardiovascular disease Hypertension Heart disease Alcoholism Father Family history of lung cancer Alcoholism Grandparent Diabetes mellitus Heart disease <Kelli Mota PA-C - Last Filed: 12/07/22 01:36> Social History Social History: Social History Smoking status: Former smoker Second hand tobacco smoke exposure: No Smoking end date: 05/03/91 Additional smoking assessment comments: ~20 year smoking history Alcohol intake: never Substance use: never Substance use type: does not use Lack of Transportation: No Lack of Food: Never True Current Housing: I Have Housing Concerned
--- NOTE | 2022-12-06 22:01 | PC.NURSE ---
Radiology at bedside to obtain CXR.
[2022-12-06 22:35] LABS: Influenza A QL RT-PCR Negative (Negative); Influenza B QL RT-PCR Negative (Negative); RSV RNA, RT-PCR Negative (Negative); SARS-CoV-2 RNA PCR Negative
[2022-12-06] MEDS: MECLIZINE HCL 25 MG TABLET PO (23:05)
--- NOTE | 2022-12-06 23:17 | PC.NURSE ---
Patient report given to JOSE Pool. All questions answered and care of patient transferred.
[2022-12-06 23:35] LABS: Appearance Urine Clear (Clear); Bilirubin Urine Negative (Negative); Blood Urine Negative (Negative); Color Urine Yellow (Yellow); Glucose Urine UA Negative (Negative); Ketones Urine Negative (Negative); Leukocyte Esterase Ur Negative LEU/UL (Negative); Nitrate Urine Negative (Negative); Protein Urine Negative (Negative); Specific Grav Ur 1.006 (1.001-1.035); Urobilinogen Urine 0.2 mg/dL (<2.0)
[2022-12-06 23:58] LABS: Add Urine Microscopic? NO
[2022-12-07 01:00] VITALS: BP 146/80; PULSE 77; RESP 16; O2SAT 99
== END 2022-12-07 01:00 | disposition home or self-care (01) ==
PROVIDERS: Emergency Medicine; Emergency Provider Physician Assistant; PCP Nurse Practitioner
DX: R42 Dizziness and giddiness (principal); Z20.822 Contact with and (suspected) exposure to COVID-19; I10 Essential (primary) hypertension; E03.9 Hypothyroidism, unspecified; E78.5 Hyperlipidemia, unspecified; J45.909 Unspecified asthma, uncomplicated; E11.9 Type 2 diabetes mellitus without complications; G47.33 Obstructive sleep apnea (adult) (pediatric); E55.9 Vitamin D deficiency, unspecified; Z90.710 Acquired absence of both cervix and uterus; Z86.16 Personal history of COVID-19; Z87.891 Personal history of nicotine dependence; R94.31 Abnormal electrocardiogram [ECG] [EKG]
CPT/HCPCS: 36415; 71046; 80053; 81003; 85025; 87637; 93005; 99283; A9270

== ENCOUNTER 2022-12-23 07:25 | Outpatient (CLI) | payer MEDICARE, SELFPAY ==
--- NOTE | ~2022-12-23 | MR_ITS ---
EXAMINATION: MR cervical spine wo con DATE: 12/23/2022 09:04 INDICATION: Neck pain. TECHNIQUE: Magnetic resonance imaging (MRI) of the cervical spine was performed without intravenous c ontrast. COMPARISON: None FINDINGS: There is mild kyphosis of cervical spine. Vertebral body heights are normal. There is mildl y decreased disc height at C4-C5 and moderately decreased disc height at C5-C6 and C6-C7. The spinal cord signal intensity is normal. The following disc levels are specifically discussed: C2-C3: The disc does not extend beyond the endplate margin. There is no uncovertebral joint osteoarth ritis. There is mild bilateral facet joint osteoarthritis. There is no neural foraminal stenosis. The re is no central canal stenosis. C3-C4: The disc does not extend beyond the endplate margin. There is mild left uncovertebral joint os teoarthritis. There is mild bilateral facet joint osteoarthritis. There is mild left neural foraminal stenosis. There is no central canal stenosis. C4-C5: The disc is bulging. There is mild bilateral uncovertebral joint osteoarthritis. There is mild right and moderate left facet joint osteoarthritis. There is mild left neural foraminal stenosis. Th ere is mild central canal stenosis with ventral indentation of the spinal cord. C5-C6: The disc is bulging. There is severe bilateral uncovertebral joint osteoarthritis. There is mi ld left facet joint osteoarthritis. There is moderate bilateral neural foraminal stenosis. There is m ild central canal stenosis. C6-C7: The disc is bulging. There is severe bilateral uncovertebral joint osteoarthritis. There is mi ld bilateral facet joint osteoarthritis. There is moderate bilateral neural foraminal stenosis. There is mild central canal stenosis. C7-T1: The disc does not extend beyond the endplate margin. There is no uncovertebral joint osteoarth ritis. There is severe bilateral facet joint osteoarthritis. There is mild bilateral neural foraminal stenosis. There is no central canal stenosis. IMPRESSION: 1. Moderate cervical spondylosis. Reviewed, dictated and finalized at location A.
--- NOTE | ~2022-12-23 | MR_ITS ---
EXAMINATION: MR brain IAC wo con DATE: 12/23/2022 09:04 INDICATION: Headache. TECHNIQUE: Magnetic resonance imaging (MRI) of the brain, brainstem, and internal auditory canals was performed without intravenous contrast. COMPARISON: Brain MRI 05/27/2008, head CT 03/21/2022 FINDINGS: There is no intracranial hemorrhage, acute infarction, or abnormal intracranial mass lesion . The ventricles are normal in size. There is an old blowout fracture of medial wall of left orbit. T he mastoid air cells are normal. The internal auditory canals and inner and middle ears are normal. IMPRESSION: 1. Normal brain. Reviewed, dictated and finalized at location A. IMPRESSION: 1. Normal brain.
== END 2022-12-23 07:26 | disposition home or self-care (01) ==
PROVIDERS: PCP Nurse Practitioner; Visit Provider Nurse Practitioner
DX: R51.9 Headache, unspecified (principal); R42 Dizziness and giddiness; R20.0 Anesthesia of skin; R20.2 Paresthesia of skin; M47.892 Other spondylosis, cervical region
CPT/HCPCS: 70551; 72141

== ENCOUNTER 2023-01-21 14:31 | Outpatient (CLI) | payer MEDICARE, SELFPAY ==
--- NOTE | ~2023-01-21 | XR_ITS ---
XR knee RT min 4V 01/21/2023 14:45 Indication: Right knee pain after recent fall Procedure: 4 views right knee Comparison: 04/18/2019 Findings: There is tricompartment osteoarthritis of the right knee. There is chondrocalcinosis. No si gnificant joint effusion. No acute fracture or traumatic malalignment. Impression: 1: Tricompartment osteoarthritis of the right knee with chondrocalcinosis. Reviewed, dictated and finalized at location L. Impression: 1: Tricompartment osteoarthritis of the right knee with chondrocalcinosis.
== END 2023-01-21 14:32 ==
PROVIDERS: PCP Nurse Practitioner Family; Visit Provider Nurse Practitioner Family
DX: M17.11 Unilateral primary osteoarthritis, right knee (principal)
CPT/HCPCS: 73564

== ENCOUNTER 2023-02-17 08:54 | Emergency (ER) | payer MEDICARE, SELFPAY ==
[2023-02-17] VITALS (10 sets, daily range): BP systolic 99–159; BP diastolic 66–70; PULSE 58–68; RESP 16–18; TEMP 36.4; O2SAT 93–100
--- NOTE | ~2023-02-17 | XR_ITS ---
XR knee RT min 4V 02/17/2023 09:19 Indication: Anterior medial knee pain. Procedure: 4 views right knee Comparison: 01/21/2023 Findings: There is moderate osteoarthritis of the right knee. There is chondrocalcinosis. No acute fr acture or traumatic malalignment. No significant joint effusion. No foreign bodies. Impression: 1: Moderate osteoarthritis of the right knee. 2: Chondrocalcinosis. Reviewed, dictated and finalized at location [] Impression: 1: Moderate osteoarthritis of the right knee. 2: Chondrocalcinosis.
--- NOTE | 2023-02-17 09:12 | ED.LOWEXIN ---
HPI - Extremity Injury (Lower) General Chief Complaint: Extremity Injury, Lower Stated Complaint: right leg pain Time Seen by Provider: 02/17/23 09:01 History of Present Illness HPI Narrative: 62-year-old female reports for evaluation of right knee pain x6 weeks, worsening over the past 4 days. Patient states 6 days ago she was walking on uneven sidewalk, stubbed her toe and jerked her knee. She denies falling to the ground, hitting her head or LOC. States since then she has been having pain to the anterior inferior aspect of her knee, worse with ambulating and movement. She reports the pain is worse in the past 3 to 4 days, states she may have reinjured it while she was getting in and out of her car 4 days ago. She reports taking leftover hydrocodone's, last dose at 0200. Evaluated by her PCP for the knee pain 2 to 3 weeks ago, had x-rays performed on January 30 which showed tricompartmental osteoarthritis. She was referred to the orthopedist per the note, however has not made an appointment with an orthopedic doctor. Denies fever, knee warmth, paresthesias. Related Data Allergies Allergy/AdvReac Type Severity Reaction Status Date / Time No Known Allergies Allergy Verified 02/17/23 09:12 Review of Systems Review of Systems: CONSTITUTIONAL: Denies fever, chills EYES: Denies visual changes, redness, or discharge. ENT: Denies rhinorrhea, congestion, sore throat, or otalgia. CARDIOVASCULAR: Denies chest pain, palpitations, or edema. RESPIRATORY: Denies cough or dyspnea. GASTROINTESTINAL: Denies abdominal pain, nausea, vomiting, or diarrhea. GENITOURINARY: Denies dysuria or hematuria. SKIN: Denies rash or itching. MUSCULOSKELETAL: See HPI NEUROLOGIC: Denies headache, numbness, dizziness, or weakness. PSYCHIATRIC: Denies anxiety or depression. FORMERLY [facility], 1928–1983 Past Medical History Medical History Adult hypothyroidism Anxiety Asthma Chronic sinusitis De Quervain's tenosynovitis, right Diverticulosis Essential (primary) hypertension History of COVID-19 History of diabetes mellitus Resolved with weight loss. Last A1C 5.2 07/24/2020. Hypertension Obstructive sleep apnea (adult) (pediatric) Other and unspecified hyperlipidemia Varicose veins of both lower extremities Vitamin D deficiency Surgical History Surgical History H/O: hysterectomy (~2003) Family History Family History Mother Family history of pancreatic cancer Family history of heart disease in male family member before age 55 Family history of cardiovascular disease Hypertension Heart disease Alcoholism Father Family history of lung cancer Alcoholism Grandparent Diabetes mellitus Heart disease Social History Social History Smoking status: Former smoker Second hand tobacco smoke exposure: No Smoking end date: 05/03/91 Additional smoking assessment comments: ~20 year smoking history Alcohol intake: never Substance use: never Substance use type: does not use Lack of Transportation: No Lack of Food: Never True Current Housing: I Have Housing Concerned About Future Housing: No Difficulty Paying Gas/Electric Bills: No Difficulty Paying for Meds: No Currently Unemployed: No Education: Trade/Vocational Certificate Difficulty w/ Childcare or Family Care: No Living arrangements: alone Occupation/Education: retired Gender identity (if verbalized by the patient): Female Agree to blood products: Yes Exam Narrative: GENERAL: Well-appearing, in no acute distress. HEAD: Normocephalic CHEST: No respiratory distress. Clear to auscultation, no adventitious breath sounds. HEART: Regular rate and rhythm. No murmur heard. Normal peripheral pulses. EXTREMITIES: RLE: Tenderness to palpation of the kne
[2023-02-17] MEDS: HYDROcodone/acetaminophen (*CRX) 5-325 MG TABLET 1 TAB PO (09:21)
[2023-02-17] MEDS: IBUPROFEN 600 MG TABLET PO (09:21)
== END 2023-02-17 10:30 | disposition home or self-care (01) ==
PROVIDERS: Emergency Provider Physician Assistant; PCP Nurse Practitioner Family
DX: M17.11 Unilateral primary osteoarthritis, right knee (principal); I10 Essential (primary) hypertension; J45.909 Unspecified asthma, uncomplicated; J32.9 Chronic sinusitis, unspecified; E78.49 Other hyperlipidemia; E03.9 Hypothyroidism, unspecified; G47.33 Obstructive sleep apnea (adult) (pediatric); E55.9 Vitamin D deficiency, unspecified; Z86.16 Personal history of COVID-19; Z90.710 Acquired absence of both cervix and uterus; Z87.891 Personal history of nicotine dependence
CPT/HCPCS: 73564; 96372; 99283; A9270; J1100

== ENCOUNTER 2023-07-31 09:55 | Outpatient (CLI) | payer MEDICARE, SELFPAY ==
[2023-07-31 14:59] LABS: Basophils Absolute Auto 0.1 K/mm3 (0.0-0.1); Basophils Percent Auto 0.9 % (0.2-1.2); Eosinophils Absolute Auto 0.2 K/mm3 (0-0.3); Hematocrit 47.8 % (37.0-47.0); Hemoglobin 14.7 g/dL (12.0-15.0); Immature Granulocyte Absolute 0.02 K/mm3 (0.00-0.031); Immature Granulocyte Percent A 0.2 % (0-0.5); Lymphocytes Absolute Auto 1.49 K/mm3 (0.9-3.2); Lymphocytes Percent Auto 18.6 % (18.3-44.2); Mean Corpuscular HGB Conc 30.8 g/dl (32-36); Mean Corpuscular Hemoglobin 30.4 pg (26-34); Mean Corpuscular Volume 98.8 fl (80-100); Mean Platelet Volume 10.4 fl (7.4-10.4); Monocytes Absolute Auto 0.8 K/mm3 (0.1-0.6); Monocytes Percent Auto 9.8 % (2.6-8.5); Neutrophils Absolute Auto 5.4 K/mm3 (1.3-6.7); Neutrophils Percent Auto 67.5 % (45.5-73.1); Platelet Count Result 210 k/mm3 (150-375); Red Blood Count 4.84 M/mm3 (4.2-5.4); Red Cell Distribution Width 12.4 % (11.5-14.5)
[2023-07-31 15:16] LABS: Alanine Aminotransferase 18 U/L (6-35); Albumin Level 4.5 g/dL (3.5-5.1); Alkaline Phosphatase 64 U/L (38-126); Anion Gap 14 mmol/L (8-16); Aspartate Amino Transferase 34 U/L (14-36); Bilirubin,Total 0.7 mg/dL (0.2-1.3); Blood Urea Nitrogen 18 mg/dL (7-17); Calcium 9.5 mg/dL (8.4-10.2); Carbon Dioxide 25 mmol/L (22-30); Chloride 98 mmol/L (98-107); Estimated Glomerular Filt Rate > 60; Glucose 81 mg/dL (65-110); Potassium 3.9 mmol/L (3.4-5.0); Sodium 137 mmol/L (137-145)
[2023-07-31 17:43] LABS: Hemoglobin A1C 5.3 % (<5.7)
== END 2023-07-31 09:56 | disposition home or self-care (01) ==
LOC: ANHGOSHLAB 09:56
PROVIDERS: PCP Family Medicine; Visit Provider Nurse Practitioner Family
DX: F41.9 Anxiety disorder, unspecified (principal); Z13.29 Encounter for screening for other suspected endocrine disorder; R73.03 Prediabetes; E55.9 Vitamin D deficiency, unspecified
CPT/HCPCS: 36415; 80053; 83036; 84443; 85025

== ENCOUNTER 2023-11-19 10:22 | Outpatient (CLI) | payer MEDICARE, SELFPAY ==
--- NOTE | ~2023-11-19 | XR_ITS ---
Clinical Indication: Shortness of breath PA and lateral views of the chest: Comparison: 12/06/2022 Findings: The lungs are clear, without evidence of focal consolidation or pleural effusion. Cardiome diastinal silhouette is within normal limits. Bones and soft tissues are unremarkable. Impression: Normal chest. Reviewed, dictated and finalized at location . Impression: Normal chest.
--- NOTE | ~2023-11-19 | XR_ITS ---
Cervical Spine: AP, lateral, open-mouth views Clinical History: Pain Findings: There is straightening of the normal cervical lordosis. No fracture or subluxation evident. There is large bridging anterior marginal osteophytes extending from C3 to C5. There is mild degener ative disc change at C4-C5, with moderate degenerative change at C5-C6 and C6-C7. Pre-vertebral soft tissues are unremarkable. Impression: Degenerative spondylosis, as above, with large bridging anterior osteophytes from C3 through C5. Reviewed, dictated and finalized at location M. Impression: Degenerative spondylosis, as above, with large bridging anterior osteophytes fr om C3 through C5.
== END 2023-11-19 10:23 ==
PROVIDERS: PCP Family Medicine; Visit Provider Nurse Practitioner Family
DX: E78.5 Hyperlipidemia, unspecified (principal); I10 Essential (primary) hypertension; R06.09 Other forms of dyspnea; M54.2 Cervicalgia; R20.0 Anesthesia of skin; R20.2 Paresthesia of skin; M47.892 Other spondylosis, cervical region
CPT/HCPCS: 71046; 72050

== ENCOUNTER 2023-11-20 08:57 | Outpatient (CLI) | payer MEDICARE, SELFPAY ==
[2023-11-20 16:47] LABS: Basophils Absolute Auto 0.1 K/mm3 (0.0-0.1); Basophils Percent Auto 0.9 % (0.2-1.2); Eosinophils Absolute Auto 0.2 K/mm3 (0-0.3); Eosinophils Percent Auto 2.9 % (0-4.4); Immature Granulocyte Absolute 0.02 K/mm3 (0.00-0.031); Immature Granulocyte Percent A 0.2 % (0-0.5); Lymphocytes Absolute Auto 1.73 K/mm3 (0.9-3.2); Lymphocytes Percent Auto 21.5 % (18.3-44.2); Mean Corpuscular HGB Conc 31.3 g/dl (32-36); Mean Corpuscular Hemoglobin 29.9 pg (26-34); Mean Corpuscular Volume 95.6 fl (80-100); Mean Platelet Volume 10.3 fl (7.4-10.4); Monocytes Absolute Auto 0.7 K/mm3 (0.1-0.6); Monocytes Percent Auto 9.1 % (2.6-8.5); Neutrophils Absolute Auto 5.3 K/mm3 (1.3-6.7); Neutrophils Percent Auto 65.4 % (45.5-73.1); Platelet Count Result 224 k/mm3 (150-375); Red Blood Count 5.02 M/mm3 (4.2-5.4); Red Cell Distribution Width 12.6 % (11.5-14.5)
[2023-11-20 18:21] LABS: Alanine Aminotransferase 19 U/L (6-35); Albumin Level 4.3 g/dL (3.5-5.1); Alkaline Phosphatase 67 U/L (38-126); Anion Gap 6 mmol/L (8-16); Aspartate Amino Transferase 32 U/L (14-36); Bilirubin,Total 0.7 mg/dL (0.2-1.3); Blood Urea Nitrogen 19 mg/dL (7-17); Calcium 9.5 mg/dL (8.4-10.2); Carbon Dioxide 27 mmol/L (22-30); Chloride 104 mmol/L (98-107); Cholesterol 169 mg/dL (0-200); Estimated Glomerular Filt Rate > 60; Glucose 92 mg/dL (65-110); HDL Direct 40 mg/dL; Sodium 137 mmol/L (137-145); Triglycerides 152 mg/dL (<150)
[2023-11-20 18:28] LABS: Vitamin D 25 Hydroxy 31.1 ng/mL
[2023-11-20 21:27] LABS: LDL Cholesterol Direct 116 mg/dL
[2023-11-21 02:47] LABS: Hemoglobin A1C 5.7 % (<5.7)
== END 2023-11-20 08:58 | disposition home or self-care (01) ==
LOC: ANHGOSHLAB 08:58
PROVIDERS: PCP Family Medicine; Visit Provider Nurse Practitioner Family
DX: E03.9 Hypothyroidism, unspecified (principal); E55.9 Vitamin D deficiency, unspecified; E78.5 Hyperlipidemia, unspecified; I10 Essential (primary) hypertension; R51.9 Headache, unspecified; R73.03 Prediabetes; Z13.29 Encounter for screening for other suspected endocrine disorder; Z00.00 Encounter for general adult medical examination without abnormal findings; E53.8 Deficiency of other specified B group vitamins
CPT/HCPCS: 36415; 80053; 80061; 82306; 82607; 83036; 84443; 85025

== ENCOUNTER 2024-03-09 10:28 | Outpatient (CLI) | payer MEDICARE, SELFPAY ==
[2024-03-09 13:06] LABS: Hematocrit 46.2 % (37.0-47.0); Hemoglobin 14.8 g/dL (12.0-15.0); Mean Corpuscular Volume 96.7 fl (80-100); Mean Platelet Volume 10.1 fl (7.4-10.4); Platelet Count Result 222 k/mm3 (150-375); Red Blood Count 4.78 M/mm3 (4.2-5.4); White Blood Count 8.7 K/mm3 (4.5-10.0)
[2024-03-09 13:18] LABS: Alanine Aminotransferase 18 U/L (6-35); Albumin Level 4.3 g/dL (3.5-5.1); Alkaline Phosphatase 66 U/L (38-126); Anion Gap 7 mmol/L (4-12); Aspartate Amino Transferase 28 U/L (14-36); Bilirubin,Total 0.6 mg/dL (0.2-1.3); Blood Urea Nitrogen 19 mg/dL (7-17); Calcium 9.1 mg/dL (8.4-10.2); Carbon Dioxide 30 mmol/L (22-30); Chloride 101 mmol/L (98-107); Cholesterol 170 mg/dL (0-200); Estimated Glomerular Filt Rate > 60; Glucose 91 mg/dL (65-110); HDL Direct 57 mg/dL; Potassium 4.4 mmol/L (3.4-5.0); Sodium 138 mmol/L (137-145); Triglycerides 89 mg/dL (<150)
[2024-03-09 13:29] LABS: LDL Cholesterol Direct 95 mg/dL
[2024-03-10 18:40] LABS: Hemoglobin A1C 5.7 % (<5.7)
== END 2024-03-09 10:29 | disposition home or self-care (01) ==
LOC: ANHGOSHLAB 10:29
PROVIDERS: PCP Family Medicine; Visit Provider Nurse Practitioner Family
DX: E03.9 Hypothyroidism, unspecified (principal); E55.9 Vitamin D deficiency, unspecified; F41.9 Anxiety disorder, unspecified; I10 Essential (primary) hypertension; R06.09 Other forms of dyspnea; R73.03 Prediabetes; E53.8 Deficiency of other specified B group vitamins; Z00.00 Encounter for general adult medical examination without abnormal findings; E78.5 Hyperlipidemia, unspecified
CPT/HCPCS: 36415; 80053; 80061; 82607; 83036; 84443; 85027

== ENCOUNTER 2024-03-12 10:28 | Outpatient (CLI) | payer MEDICARE, SELFPAY ==
[2024-03-12 15:00] LABS: T4 Thyroxine 9.28 ug/dL (5.53-11.0)
== END 2024-03-12 10:29 | disposition home or self-care (01) ==
PROVIDERS: PCP Family Medicine; Visit Provider Nurse Practitioner Family
DX: E03.9 Hypothyroidism, unspecified (principal); E55.9 Vitamin D deficiency, unspecified; E66.9 Obesity, unspecified; E78.5 Hyperlipidemia, unspecified; H91.93 Unspecified hearing loss, bilateral; H93.13 Tinnitus, bilateral; I10 Essential (primary) hypertension; J32.9 Chronic sinusitis, unspecified; M26.609 Unspecified temporomandibular joint disorder, unspecified side; R20.0 Anesthesia of skin; R20.2 Paresthesia of skin; R42 Dizziness and giddiness; R51.9 Headache, unspecified
CPT/HCPCS: 36415; 84436; 84480

== ENCOUNTER 2024-03-30 08:01 | Outpatient (CLI) | payer MEDICARE, SELFPAY ==
--- NOTE | ~2024-03-30 | CT_ITS ---
CT brain & sinus wo con Ordering provider: Tara Bustos APRN History: 63 years Female with . R20.0 - Anesthesia of skin . Comparison: None. Technique: CT of the head without contrast. . Radiation reduction technique utilized. The dose-length product was 903.05 mGy-cm. FINDINGS: BRAIN PARENCHYMA AND CSF SPACES: Old lacunar infarct in the left basal ganglia. No midline shift, mas s effect or hemorrhage. The brain parenchyma and CSF spaces are otherwise normal. VISUALIZED PARANASAL SINUSES: Well aerated. MASTOIDS: Well aerated. BONES: The bones appear intact. SOFT TISSUES: Visualized nasopharynx is normal. Superficial soft tissues are normal. IMPRESSION: No acute intracranial findings. CT brain & sinus wo con Ordering provider: Tara Bustos APRN History: . R20.0 - Anesthesia of skin . Comparison: None. Technique: Thin slice Scans CT of the paranasal sinuses was performed with coronal and sagittal refor matted images. No IV contrast. . Automated exposure control and iterative reconstruction technique w ere employed. The dose-length product was 903.05 mGy-cm. Findings: NASAL SEPTUM: midline. OSTEOMEATAL UNITS: Bilaterally patent. NASAL TURBINATES AND NASOPHARYNX: Normal. PARANASAL SINUSES: Well aerated. VISUALIZED MASTOIDS: Normal as visualized. BONES: Normal. SUPERFICIAL SOFT TISSUES/VISUALIZED BRAIN PARENCHYMA: Normal. IMPRESSION: No acute abnormality seen in the paranasal sinuses. Reviewed, dictated and finalized at location A. IMPRESSION: No acute intracranial findings. CT brain & sinus wo con Ordering provider: Tara Bustos APRN History: . R20.0 - Anesthesia of skin . Comparison: None. Technique: Thin slice Scans CT of the paranasal sinuses was performed with irvin nal and sagittal reformatted images. No IV contrast. . Automated exposure cont rol and iterative reconstruction technique were employed. The dose-length produ ct was 903.05 mGy-cm. Findings: NASAL SEPTUM: midline. OSTEOMEATAL UNITS: Bilaterally patent. NASAL TURBINATES AND NASOPHARYNX: Normal. PARANASAL SINUSES: Well aerated. VISUALIZED MASTOIDS: Normal as visualized. BONES: Normal. SUPERFICIAL SOFT TISSUES/VISUALIZED BRAIN PARENCHYMA: Normal.
--- NOTE | ~2024-03-30 | US_ITS ---
EXAMINATION: US carotid duplex BI DATE: 03/30/2024 09:06 INDICATION: Neck pain. TECHNIQUE: Grayscale, color Doppler, and pulsed Doppler images of the cervical carotid arteries were obtained. The degree of vessel stenosis is placed in one of the following categories: normal, <50%, 5 0-69%, >=70% but less than near-occlusion, near-occlusion, or total occlusion. Note that percent sten osis relative to normal distal artery lumen diameter is indirectly measured from velocity measurement s as described by Domenico, et al. Radiology 2003; 229:340-346. COMPARISON: None. FINDINGS: RIGHT: The right common carotid artery (CCA) peak systolic velocity (PSV) is 81 cm/s. The right internal car otid artery (ICA) PSV is 71 cm/s. The right ICA end-diastolic velocity (EDV) is 27 cm/s. The right IC A/CCA PSV ratio is 0.9. Grayscale and color Doppler images yield an estimate of <50% diameter reducti on from plaque in the ICA. There is antegrade flow in the right vertebral artery. LEFT: The left CCA PSV is 74 cm/s. The left ICA PSV is 65 cm/s. The left ICA EDV is 28 cm/s. The left ICA/C CA PSV ratio is 0.9. Grayscale and color Doppler images yield an estimate of <50% diameter reduction from plaque in the ICA. There is antegrade flow in the left vertebral artery. IMPRESSION: 1. <50% stenosis in the right internal carotid artery. 2. <50% stenosis in the left internal carotid artery. Reviewed, dictated and finalized at location A.
== END 2024-03-30 08:02 | disposition home or self-care (01) ==
PROVIDERS: PCP Family Medicine; Visit Provider Nurse Practitioner Family
DX: M54.2 Cervicalgia (principal); R20.0 Anesthesia of skin; R20.2 Paresthesia of skin; J32.9 Chronic sinusitis, unspecified; R42 Dizziness and giddiness; H91.93 Unspecified hearing loss, bilateral; H93.13 Tinnitus, bilateral; M26.609 Unspecified temporomandibular joint disorder, unspecified side; R51.9 Headache, unspecified; I65.23 Occlusion and stenosis of bilateral carotid arteries
CPT/HCPCS: 70450; 70486; 93880

== ENCOUNTER 2024-05-11 08:20 | Outpatient (CLI) | payer MEDICARE, SELFPAY ==
--- NOTE | 2024-05-14 14:44 | WPDPFTINT ---
PFT Procedure Performed PFT Procedure Performed Spirometry with Pre/Post Bronchodilator Plethysmography (Lung Vol) Diffusing Cap (DLCO) Flow Vol Loop PFT Interpretation Lung volumes were measured with the body plethysmography method. Lung volumes are unremarkable. Spirometry showed normal expiratory flow rates and a normal FEV1 to FVC ratio of 79%. Following administration of a bronchodilator there was no significant increase in the expiratory flow rates when calculated based on greater than 10% of the predicted value change in FEV1 or FVC (most recent ats/ERS recommendation). Lung diffusion capacity is within the normal range. The flow volume loop shows plateau in the expiratory flows. However this expiratory plateau was not recorded with all trials. In comparison to previous study in 2017, the post bronchodilator FVC and FEV1 now lower by approximately 0.45-0.5 L each. Lung diffusion capacity is essentially unchanged. Impression: Spirometry, lung volumes, and lung diffusion capacity all within the normal range.
== END 2024-05-11 08:21 | disposition home or self-care (01) ==
LOC: ANHPFT 08:22
PROVIDERS: PCP Family Medicine; Visit Provider Nurse Practitioner Family
DX: R06.09 Other forms of dyspnea (principal)
CPT/HCPCS: 94060; 94726; 94729

== ENCOUNTER 2024-10-29 09:15 | Outpatient (CLI) | payer MEDICARE, SELFPAY | END 2024-10-29 09:16 | disposition home or self-care (01) | PROVIDERS: PCP Family Medicine; Visit Provider Nurse Practitioner Family | DX: R05.9 Cough, unspecified (principal); R06.00 Dyspnea, unspecified | CPT/HCPCS: 71046 ==

== ENCOUNTER 2024-12-01 09:15 | Outpatient (CLI) | payer MEDICARE, SELFPAY ==
--- OUTSIDE RECORDS SUMMARY | 2024-12-01 09:53 | XMS_ITS | Clinical Summary ---
Author Organization [facility] [address] [place] [address] Care Team Providers Care Search Coordinator Name Role Phone Sherry Lutz MD Unavailable [phone] Frank Mcdowell MD Primary Care Provider Allergies Active Allergy Reactions Criticality Noted Date Comments Cefadroxil Pseudoephedrine Nausea & Vomiting,Vomiting Low 11/2017 Medications fluticasone-bret meterol (ADVAIR DISKUS) 100-50 mcg/dose diskus inhaler 0 0 4 Active hydroCHLOROthia zide (HYDRODIURIL) 25 mg tablet 25 mg. 0 0 4 Active albuterol HFA (PROVENTIL HFA,VENTOLIN HFA) 90 mcg/actuation inhaler 90 mcg. 0 Inhaler 0 4 Active losartan (COZAAR) 100 mg tablet Take 1 tablet (100 mg total) by mouth daily 5 8 Active simvastatin (ZOCOR) 20 mg tablet Take 1 tablet (20 mg total) by mouth daily 1 Active butalbital-acet aminophen-caffe ine (FIORICET) 50-300-40 mg per capsule TAKE 1 CAPSULE BY MOUTH EVERY 6 HOURS NEEDED FOR PAIN 3 Active FLUoxetine (PROzac) 40 mg capsule Take 1 capsule (40 mg total) by mouth daily 3 Active levothyroxine (SYNTHROID) 125 mcg tablet Take 1 tablet (125 mcg total) by mouth daily 3 Active meloxicam (MOBIC) 15 mg tabletIndicatio ns:Acute pain of right knee,Chondrocal cinosis of lower leg,Arthritis of right knee TAKE 1 TABLET(15 MG) BY MOUTH DAILY WITH FOOD 30 tablet 3 Active baclofen (LIORESAL) 10 mg tablet Take 1 tablet (10 mg total) by mouth nightly at bedtime 4 Active Advair HFA 45-21 mcg/actuation inhaler USE 2 INHALATIONS BY MOUTH EVERY 12 HOURS 4 Active hydrOXYzine (ATARAX) 25 mg tablet Take 1 tablet (25 mg total) by mouth nightly as needed for sleep 4 Active Dulera 200-5 mcg/actuation inhaler 4 Active Active Problems Problem Noted Date Diagnosed Date Pre-diabetes 09/20/2018 Assessment & Plan (08/17/2024 10:58 AM OPTICAL INSTRUMENT SPECIALIST): Consistently normal A1c levels. Not prediabetic. Lab Results Component Value Date HGBA1C 5.4 08/17/2024 HGBA1C 5.5 02/27/2023 HGBA1C 5.5 06/03/2022 Assessment & Plan (02/27/2023 11:07 AM CDT): Consistently normal A1c levels. Not prediabetic. Lab Results Component Value Date HGBA1C 5.5 02/27/2023 HGBA1C 5.5 06/03/2022 HGBA1C 5.2 09/14/2018 Assessment & Plan (06/03/2022 9:19 AM CDT): A1c today 5.5 % Counseled on diet and exercise Assessment & Plan (04/23/2021 2:49 PM CDT): Recheck A1c Counseled diet and exercise Restart metformin if needed Assessment & Plan (11/14/2020 2:37 PM CDT): Will obtain labs from patient PCP Patient working on diet Advised to start exercise Assessment & Plan (01/03/2020 10:33 AM CDT): Check A1c Peripheral polyneuropathy 09/20/2018 Vitamin D deficiency 09/20/2018 Assessment & Plan (01/03/2020 10:33 AM CDT): Check labs Advise to start taking over the counter Vitamin D 3 2000 units oral daily Class 3 severe obesity due t o excess calories with serious comorbidity and body mass index (BMI) of 45.0 to 49.9 in adult 09/20/2018 Assessment & Plan (06/03/2022 9:19 AM CDT): Chronic, worsening Discussed about healthy lifestyle habits advise to work on healthy diet, avoid processed foods , increase vegetables and protein and cut back on carb portions and also avoid fruit juices and regular soda and desserts Increase physical activity , recommend at least 150 min of aerobic activity per week and include resistance training 2 x weekly Start Phentermine therapy Assessment & Plan (04/23/2021 2:49 PM CDT): Chronic, worsening Discussed about healthy lifestyle habits advise to work on healthy diet, avoid processed foods , increase vegetables and protein and cut back on carb portions and also avoid fruit juices and regular soda and desserts Increase physical activity , recommend at least 150 min of aerobic activity per week and include resistance training 2 x weekly Assessment & Plan (11/14/2020 2:36 PM CDT): Chronic, progressively improving Patient currently keto diet Advised to exercise and include some resistance training Assessment & Plan (01/03/2020 10:33 AM CDT): Chronic, worsening Discussed about healthy lifestyle habits advise to work on healthy diet, avoid processed foods , increase vegetables and protein and cut back on carb portions and also avoid fruit juices and regular soda and desserts Increase physical activity , recommend at least 150 min of aerobic activity per week and include resistance training 2 x weekly Assessment & Plan (01/05/2019 12:35 PM CDT): Obesity is unchanged. Discussed the patient's BMI. The BMI is above average; BMI management plan is completed. General weight loss/lifestyle modification strategies discussed (elicit support from others; identify saboteurs; non-food rewards, etc). Behavioral treatment: stress management. Diet interventions: moderate (500 kCal/d) deficit diet. Informal exercise measures discussed, e.g. taking stairs instead of elevator. Regular aerobic exercise program discussed. Assessment & Plan (09/20/2018 4:50 PM OPTICAL INSTRUMENT SPECIALIST): Obesity is worsening. Discussed the patient's BMI. The BMI is above average; BMI management plan is completed. General weight loss/lifestyle modification strategies discussed (elicit support from others; identify saboteurs; non-food rewards, etc). Behavioral treatment: stress management. Diet interventions: moderate (500 kCal/d) deficit diet. Informal exercise measures discussed, e.g. taking stairs instead of elevator. Regular aerobic exercise program discussed. Mixed hyperlipidemia 01/09/2018 Depression 11/01/2014 Overview (12/05/2016): Depression Anxiety 11/01/2014 Overview (12/05/2016): Anxiety Seasonal allergic rhinitis 11/01/2014 Overview (12/05/2016): Seasonal nasal allergies Chronic otitis media 10/12/2014 Overview (12/05/2016): Chronic otitis media of both ears Obstructive sleep apnea syndrome 10/12/2014 Overview (12/05/2016): Obstructive sleep apnea Chronic sinusitis 10/12/2014 Overview (12/05/2016): Chronic sinusitis Insomnia 10/12/2014 Overview (12/05/2016): Insomnia Morbid obesity 10/12/2014 Overview (12/05/2016): Morbid obesity Hypothyroidism 01/15/2014 Overview (12/04/2016): HYPOTHYROIDISM NOS Assessment & Plan (08/17/2024 10:59 AM OPTICAL INSTRUMENT SPECIALIST): Chronic problem; status unknown. Clinically euthyroid on current levothyroxine 125mcg daily. Aware to take 1st thing in morning, 30-60 minutes before food/drink/other medications. Has not been seen in office since 02/27/23 nor had labs since that time. Will update TFTs today. Verified that she uses mychart. Aware to check results/results letter in mychart. Will contact by phone if needed. Assessment & Plan (02/27/2023 11:08 AM CDT): Chronic problem. Currently taking levothyroxine 125mcg daily. Will update TFTs today. Verified that she uses mychart. Aware to check results/results letter in mychart. Will contact by phone if needed. Assessment & Plan (06/03/2022 4:53 PM CDT): Advised to continue current dose of levothyroxine 100 mcg oral daily Check thyroid function test today And based on that further plans - reviewed TSH from today Plan to increase Levothyroxine to 112 mcg oral daily Recheck TSH in 3 months Assessment & Plan (04/23/2021 2:49 PM CDT): Advised to continue current dose of levothyroxine 100 mcg oral daily Check thyroid function test in based on that further plans Assessment & Plan (11/14/2020 2:36 PM CDT): Advised to continue current dose of levothyroxine 100 mcg oral daily Will try to obtain patient recent thyroid labs from PCP Repeat thyroid labs in 2 months Follow-up in 2 months Assessment & Plan (01/03/2020 10:33 AM CDT): Continue to take current dose of levothyroxine 137 mcg oral daily Check TSH soon , further plans based on lab work Follow-up in 1 year Instructions for taking levothyroxine Brand name is preferred Take thyroid pill all by itself Take thyroid pill one hour before food or 2 to 3 hours after food Heat, humidity, and direct sunlight will cause a loss of potency Never store thyroid pill in the bathroom The medication should be taken daily. If one or more pills are missing in a week, they can be taken all together at once, making sure at the end of the week, 7 tabs have been taken. Assessment & Plan (01/05/2019 12:35 PM CDT): Continue to take current dose of levothyroxine 137 mcg oral daily Check TSH soon , further plans based on lab work Follow-up in 1 year Instructions for taking levothyroxine Brand name is preferred Take thyroid pill all by itself Take thyroid pill one hour before food or 2 to 3 hours after food Heat, humidity, and direct sunlight will cause a loss of potency Never store thyroid pill in the bathroom The medication should be taken daily. If one or more pills are missing in a week, they can be taken all together at once, making sure at the end of the week, 7 tabs have been taken. Assessment & Plan (09/20/2018 4:50 PM OPTICAL INSTRUMENT SPECIALIST): Advised to c/w current Levothyroxine dose recheck labs today , based on that further plans Instructions for taking levothyroxine Brand name is preferred Take thyroid pill all by itself Take thyroid pill one hour before food or 2 to 3 hours after food Heat, humidity, and direct sunlight will cause a loss of potency Never store thyroid pill in the bathroom The medication should be taken daily. If one or more pills are missing in a week, they can be taken all together at once, making sure at the end of the week, 7 tabs have been taken. Essential hypertension 11/25/2011 Cephalalgia 11/05/2011 Syncope 11/05/2011 Resolved Problems Problem Noted Date Diagnosed Date Resolved Date Diabetes mellitus type II, c ontrolled, with no complications 01/09/2018 02/25/2023 Disorder of thyroid 11/01/2014 02/28/20 23 Overview (12/05/2016): Thyroid disease Obesity, diabetes, and hypertension syndrome 4 02/25/2023 Overview (12/05/2016): DYSMETABOLIC SYNDROME X Surgical History Surgery Date Site/Laterality Comments TOTAL ABDOMINAL HYSTERECTOMY W/ BILATERAL SALPINGOOPHORECTOMY 2003 Hysterectomy, total abdominal, BSO FOOT SURGERY foot surgery HYSTERECTOMY hysterectomy LEG SURGERY leg surgery OTHER SURGICAL HISTORY vein strippping HYSTERECTOMY hysterectomy OTHER SURGICAL HISTORY foot fracture repair Medical History Medical History Date Comments Hx Other Medical heat exhaustion Hx Other Medical endometrosis Hx Other Medical foot surgery Disorder of thyroid Thyroid dise ase Hypertension Hypertension Adiposity Obesity Arthritis Arthritis; Comme nts: [facility] 07/22/2014 - Hypothyroidism Hypothyroidism; Comments: [facility] 07/22/2014 - Palpitations Palpitations; Co mments: [facility] 07/22/2014 - Shortness of breath Shortness of breath; Comments: [facility] 07/22/2014 - Anxiety disorder Anxiety Depression Depression Hx Other Medical Rhinitis; Comme nts: [facility] 04/03/2016 - Asthma Family History Medical History Relation Name Comments Sleep apnea Brother Sleep apnea; Cancer Father Cancer, unknown ; Sleep apnea Father Sleep apnea; Cancer Mother Cancer, unknown ; Diabetes type II Other 1 Family hist ory of Diabetes -Type II; Hyperlipidemia Other 2 Family histor y of Hyperlipidemia; Hypertension Other 3 Family history of Hypertension; Sleep apnea Other 4 Family history of sleep apnea; Other Other 5 Family history of heart issues; Relation Name Status Comments Brother Father Mother Other 1 Other 2 Other 3 Other 4 Other 5 Social History Tobacco Use Types Packs/Day Years Used Date Smoking Tobacco: Former Smokeless Tobacco: Never Alcohol Use Standard Drinks/Week Comments No 0 (1 standard drink = 0.6 oz pur e alcohol) PHQ-2 Answer Date Recorded PHQ-2 Total Score (If total score is 3 or more points, staff should administer the PHQ-9) 0 06/03/2022 Comments Unknown Sex and Gender Information Value Date Recorded Sex Assigned at Not on file Legal Sex Female 12:45 AM OPTICAL INSTRUMENT SPECIALIST Gender Identity Not on file Sexual Orientation Not on file Obstetrics History Last Filed Vital Signs Vital Sign Reading Time Taken Comments Blood Pressure 124/70 08/17/2024 10:34 AM OPTICAL INSTRUMENT SPECIALIST Pulse 70 08/17/2024 10:34 AM OPTICAL INSTRUMENT SPECIALIST Temperature - - Respiratory Rate 16 08/17/2024 10:34 AM OPTICAL INSTRUMENT SPECIALIST Oxygen Saturation 95% 04/16/2016 9:40 AM CDT Inhaled Oxygen Concentration - - Weight 145.2 kg (320 lb) 08/17/2024 10:34 AM OPTICAL INSTRUMENT SPECIALIST Height 176.5 cm (5' 9.49 ) 08/17/2024 10:[address] Body Mass Index 46.59 08/17/2024 10:34 AM OPTICAL INSTRUMENT SPECIALIST Plan of Treatment Health Maintenance Due Date Last Done Comments Breast Cancer Screening-Mammogram 1960 Colon Cancer Screening-Colonoscopy 1958 Fall Risk Assessment 1960 Hepatitis C Screening 1958 Osteoporosis Screening-Bone Density Scan 1958 DTaP/Tdap/Td Vaccine (1 - Tdap) 1969 Hepatitis B Screening 1976 Pneumococcal vaccine 65+ (1 of 1 - PCV) 2008 Zoster Vaccine (1 of 2) 2008 Well Visit 65+ 2023 Depression Screening 06/03/2023 06/03/2022, 04/23/2021, 11/14/2020, Additional history exists Influenza Vaccine (#1) 2024 Insurance [facility] Address: [facility] [id number] [place] [address] [facility] MEDIC[facility] ADVANTAGE [facility] Address: [address] [address] [place] [address] [facility] MEDICARE [employer]AGE [facility] Address: [facility] [address] [place] [address] Care Teams Search Coordinator Relationship Specialty Start Date End Date Frank Mcdowell MD [id number] [place] [address] PCP - General Family Practice 07/30/23 [place] [id number] [place] [address] Consulting Physician Endocrinology 08/20/18
--- OUTSIDE RECORDS SUMMARY | 2024-12-01 09:53 | XMS_ITS | Clinical Summary ---
Author Organization [facility] Address [address] [place] [address] Phone Care Team Providers Care Can Maker Name Role Phone Danna Plaza APRN, CATHERINE Primary Care Provider + Allergies No known active allergies Medications FLUoxetine (PROzac) 20 MG Capsule TAKE 3 CAPSULES BY MOUTH DAILY 03/22/2021 Active Wixela Inhub 250-50 MCG/DOSE AEROSOL POWDER, BREATH ACTIVATED INHALE 1 PUFF BY MOUTH TWICE DAILY 05/14/2021 Active levothyroxine (SYNTHROID) 137 MCG Tablet 02/20/2021 Active losartan (COZAAR) 100 MG Tablet Take 100 mg by mouth daily. 03/22/2021 Active simvastatin (ZOCOR) 20 MG Tablet Take 20 mg by mouth daily. 03/22/2021 Active Active Problems No known active problems Social History Tobacco Use Types Packs/Day Years Used Date Smoking Tobacco: Never Smokeless Tobacco: Never Comments No Sex and Gender Information Value Date Recorded Sex Assigned at Not on file Legal Sex Female 2:43 PM CDT Gender Identity Not on file Sexual Orientation Not on file Last Filed Vital Signs Vital Sign Reading Time Taken Comments Blood Pressure 132/70 06/06/2021 12:44 PM CDT Pulse 68 06/06/2021 12:44 PM CDT Temperature 36.5 C (97.7 F) 06/06/2021 12:44 PM CDT Respiratory Rate 24 06/06/2021 12:44 PM CDT Oxygen Saturation 93% 06/06/2021 12:44 PM CDT Inhaled Oxygen Concentration - - Weight 136.1 kg (300 lb) 06/06/2021 12:44 PM CDT Height - - Body Mass Index - - Plan of Treatment Health Maintenance Due Date Last Done Comments DEXA Bone Density 1960 Hepatitis C Virus (HCV) Screening 1960 TdaP Immunization 1958 Colonoscopy 2003 Colorectal Cancer Screening 2003 Cologuard 2008 Immunochemical Fecal Occult Blood 2008 Mammogram 2008 Pneumococcal Immunization (5 0+ years) (1 of 1 - PCV) 2008 Zoster Immunization (1 of 2) 2008 Influenza Immunization (#1) 2024 SARS-COV-2 Immunization ( - 2023- season) 2024 Respiratory Syncytial Virus (RSV) Immunization (Adult) (1 - 1-dose 75+ series) 2033 Hepatitis B Immunization Aged Out No longer eligible based on patient's age to complete this topic Meningococcal Immunization (ACWY) Aged Out No longer eligible based on patient's age to complete this topic Rotavirus Immunization Aged Out No lo nger eligible based on patient's age to complete this topic Insurance Care Teams Can Maker Relationship Specialty Start Date End Date Danna Plaza, VETERINARY MANAGER, [employer]OB[employer] PCP - General Advanced Practice Nurse 06/06/21
--- OUTSIDE RECORDS SUMMARY | 2024-12-01 09:53 | XMS_ITS | Clinical Summary ---
Author Organization [facility] Address [address] [place] [address] Care Team Providers Care Emissions Technician Name Role Phone Unavailable Primary Care Provider Unavailabl e Source Comments [facility],non-owned Affiliates and Associated Physician Practices is amultiple site organization consisting of ambulatory clinics and hospital sitesin [place], [place], [place] and [place]. This disclosure is being madepursuant to the Care Everywhere program and may not contain all information available regarding this patient. Last updated 18.[facility] Allergies Active Allergy Reactions Criticality Noted Date Comments Pseudoephedrine Base Vomiting 09/04/2017 Medications * Be aware that medications may not be up to date on this document. Alwaysverify current medications with the patient. Medication Sig Dispensed Refills Start Date End Date Status HYDROCHLOROTHIAZIDE PO Active LEVOTHYROXINE SODIUM PO Active SIMVASTATIN PO Active LOSARTAN POTASSIUM PO Active FLUOXETINE HCL PO Active METFORMIN HCL PO Active triamcinolone 0.1 % ointment - LCD 5% OINT Apply to affected area 2 times daily as needed Active Soap & Cleansers (GRANDPAS GLYCERIN SOAP EX) Active benzonatate (TESSALON) 200 MG capsuleIndications: Upper respiratory tract infection, unspecified type Take 1 capsule by mouth 3 times daily as needed for Cough 30 capsule 05/19/2018 Active Additional Information Patient not taking.Reported on 09/11/2018 fluticasone propionate (FLONASE) 50 MCG/ACT nasal sprayIndications:Ac delmy maxillary sinusitis, recurrence not specified [place] 2 sprays into each nostril once daily 1 bottles 09/11/2018 Active Active Problems Problem Noted Date Diagnosed Date Essential hypertension 01/09/2018 Mixed hyperlipidemia 01/09/2018 Diabetes mellitus type II, c ontrolled, with no complications 01/09/2018 Family History Medical History Relation Name Comments Cancer - Other Father Cancer - Other Mother Relation Name Status Comments Father Mother Social History Tobacco Use Types Packs/Day Years Used Date Smoking Tobacco: Former Cigarettes Smokeless Tobacco: Never Sex and Gender Information Value Date Recorded Sex Assigned at Not on file Gender Identity Not on file Sexual Orientation Not on file Last Filed Vital Signs Vital Sign Reading Time Taken Comments Blood Pressure 118/68 09/11/2018 12:07 PM JOB SETTER Pulse 68 09/11/2018 12:07 PM JOB SETTER Temperature 37 C (98.6 F) 09/11/2018 12:07 PM JOB SETTER Respiratory Rate 16 09/11/2018 12:07 PM JOB SETTER Oxygen Saturation 98% 09/11/2018 12:07 PM JOB SETTER Inhaled Oxygen Concentration - - Weight 131.5 kg (290 lb) 09/11/2018 12:07 PM JOB SETTER Height 177.8 cm (5' 10 ) 09/11/2018 12:07 PM JOB SETTER Body Mass Index 41.61 09/11/2018 12:07 PM JOB SETTER Plan of Treatment Health Maintenance Due Date Last Done Comments BONE DENSITY TESTING 1960 COLOGUARD (AGES 45-75) - COL ON CA SCREENING 1958 COLON MONITORING 1958 COLONOSCOPY - COLON CA SCREENING 1958 CT COLONOGRAPHY - COLON CA SCREENING 1960 Colorectal Cancer Screening 1958 FIT - COLON CA SCREENING 1958 FLEX SIG - COLON CA SCREENING 1958 MAMMOGRAM 1958 HEPATITIS C SCREENING 04/01/1976 DTAP/TDAP/TD VACCINES (1 - Tdap) 1977 PNEUMOCOCCAL VACCINE 50+ (1 of 1 - PCV) 2008 ZOSTER VACCINE (1 of 2) 2008 SCREENING FOR DIABETES 09/04/2017 Respiratory Syncytial Virus (RSV) Vaccine Pt: or over 60 yrs (1 - Risk 60-74 years 1-dose series) 2018 COVID-19 VACCINE ( - 2023-2 5 season) 2024 INFLUENZA VACCINE (#1) 2024 DEPRESSION SCREENING 09/01/2024 HEPATITIS B VACCINE Aged Out No longe r eligible based on patient's age to complete this topic HIB VACCINE Aged Out No longer eligi ble based on patient's age to complete this topic HPV VACCINE Aged Out No longer eligi ble based on patient's age to complete this topic MENINGOCOCCAL (Group B) VACC INE SHARED DECISION-MAKING Aged Out No longer eligibl e based on patient's age to complete this topic MENINGOCOCCAL GROUPS A/C/Y/W VACCINE Aged Out No longer eligible b ased on patient's age to complete this topic Perla Manzano Personal/Family Self 1960 [address] [id number]
--- OUTSIDE RECORDS SUMMARY | 2024-12-01 09:53 | XMS_ITS | Continuity of Care Document ---
Author Organization [facility] Address [address] [place] [address] Phone Care Team Providers Care Windmill Mechanic Name Role Phone Grover OD, Michael Unavailable Unavailable Procedures Procedure Date Contact Lens Check Contact Lens/es Other Type Sales Tax Eye Exam & Treatment Refraction No Charge Contact Lens Check No Charge Contact Lens Check CL Replacement - Vistakon Disp W/BW Soft Tax - Medical Therapeutic Fitting Of Contact Lens Office/outpatient Visit, Est Visual Field Examination(s) Office/outpatient Visit, [facility] Advance Directives Directive Yes / No Effective Date File Name No Information Encounters Encounter Description Practice Location Reason(s) For Visit Diagnoses Date Provider Providers Copied on [facility]counter [facility] [address] [place] [address] [address], [place], [place], [id number], tel:[phone] [facility] No Information 2-200 9 Grover OD Michael. [address], [place], [address], [place]. tel:[phone] [facility], [address], [place], [place], [id number], [place] tel:[phone] [facility] No Information 9-200 9 Grover OD Michael. [address], [place], [address], [place]. tel:[phone] [facility], [address], [place], [place], [id number], [place] tel:[phone] [facility] No Information Oct-1 7-200 8 Grover OD Michael. [address], [place], [place], [facility], [place]. tel:[phone] [facility], [id number] [place] [address] [address], [place], [place], [id number], [place] tel:[phone] [facility] No Information Oct-1 0-200 8 Grover OD Michael. [address], [place], [facility], [place]. tel:[phone] [facility], [address] [place] [address] [address], [place], [place], [id number], [place] tel:[phone] [facility] No Information Sep-2 5-200 8 Grover OD Imchael. [address], [place], [facility], [place]. tel:[phone] Office/outpat ient Visit, [facility], [address] [place] [address] [address], [place], [place], [id number], [place] tel:[phone] [facility] No Information Sep-0 5-200 8 Krishnasamy Jaycob. [facility], [place], [facility], [place]. tel:[phone] [facility], [address] [place] [address] [address], [place], [place], [id number], [place] tel:[phone] [facility] No Information Aug-2 6-200 8 Harleen Guardado. [facility] [address], [place], [facility], [place]. tel:[phone] Referring Provider: Geo Wolf, [facility] [address], [place], [facility]. tel:[phone] Office/outpat ient Visit, [facility], [address], [place], [place], [id number], [place] tel:[phone] [facility] No Information 8 Harleen Guardado. [address], [place], [address], [place]. tel:[phone] Referring Provider: Lex Vallecillo, [address], [place], [address]. tel:[phone] Family History Family Member Type Diagnosis Age At Onset No Information Payers Payer name Insurance type Covered alliance party ID Authoriza tion(s) No Information Social History Type Description Quantity Date Captured Comments Sex Female Smoking Status No Information Chief Complaint And Reason For Visit No Information Reason For Referral Reason For Referral No Information History Of Present Illness Encounter Date Complaint History Of Prese nt Illness No Information Functional Status Date Functional Assessmen t No Information Instructions Date Instruction Additional Infor mation No Information Assessments Type Assessment Date No Information Patient Care Teams Name Effective Dates (start - stop) Status Members No Information
--- OUTSIDE RECORDS SUMMARY | 2024-12-01 09:53 | XMS_ITS | Referral Summary ---
Author Organization [facility] [address] [place] [address] Care Team Providers Care Carpenter Railcar Name Role Phone Sherry Lutz MD Unavailable [phone] Frank Mcdowell MD Primary Care Provider Allergies [...] 09/20/2018 Assessment & Plan (08/17/2024 10:58 AM STONE PAVER): Consistently normal A1c levels. Not prediabetic. Lab [...] discussed. Assessment & Plan (09/20/2018 4:50 PM STONE PAVER): Obesity is worsening. Discussed the patient's BMI. [...] NOS Assessment & Plan (08/17/2024 10:59 AM STONE PAVER): Chronic problem; status unknown. Clinically euthyroid on [...] taken. Assessment & Plan (09/20/2018 4:50 PM STONE PAVER): Advised to c/w current Levothyroxine dose recheck [...] 4 02/25/2023 Overview (12/05/2016): DYSMETABOLIC SYNDROME X Social History Tobacco Use Types Packs/Day Years [...] on file Legal Sex Female 12:45 AM STONE PAVER Gender Identity Not on file Sexual Orientation Not on file Last Filed Vital Signs Vital Sign Reading Time Taken Comments Blood Pressure 124/70 08/17/2024 10:34 AM STONE PAVER Pulse 70 08/17/2024 10:34 AM STONE PAVER Temperature - - Respiratory Rate 16 08/17/2024 10:34 AM STONE PAVER Oxygen Saturation 95% 04/16/2016 9:40 AM CDT Inhaled Oxygen Concentration - - Weight 145.2 kg (320 lb) 08/17/2024 10:34 AM STONE PAVER Height 176.5 cm (5' 9.49 ) 08/17/2024 10:[address] Body Mass Index 46.59 08/17/2024 10:34 AM STONE PAVER Plan of Treatment Not on file Insurance [facility] MEDICARE ADVANTAGE [facility] MEDIC[facility] Address[facility] [address] [place] [address] [facility] MEDICARE ADVANTAGE [facility] MEDIC[facility] Address: [address] [address] [place] [address] [facility] MEDICARE ADVANTAGE [facility] MEDICARE Address: [address] [address] [place] [address] Care Teams Carpenter Railcar Relationship Specialty Start Date End Date Frank Mcdowell MD [facility] [address] [place] [address] PCP - General Family Practice 07/30/23 [place] [address] [place] [address] Consulting Physician Endocrinology 08/20/18
[2024-12-01 13:19] LABS: Alanine Aminotransferase 18 U/L (6-35); Albumin Level 4.3 g/dL (3.5-5.1); Alkaline Phosphatase 62 U/L (38-126); Anion Gap 9 mmol/L (4-12); Aspartate Amino Transferase 32 U/L (14-36); Bilirubin,Total 0.5 mg/dL (0.2-1.3); Blood Urea Nitrogen 16 mg/dL (7-17); Calcium 9.2 mg/dL (8.4-10.2); Carbon Dioxide 28 mmol/L (22-30); Chloride 100 mmol/L (98-107); Estimated Glomerular Filt Rate 59; Glucose 89 mg/dL (65-110); Sodium 137 mmol/L (137-145)
[2024-12-01 13:31] LABS: Basophils Absolute Auto 0.1 K/mm3 (0.0-0.1); Basophils Percent Auto 0.5 % (0.2-1.2); Eosinophils Absolute Auto 0.1 K/mm3 (0-0.3); Eosinophils Percent Auto 1.2 % (0-4.4); Hematocrit 44.8 % (37.0-47.0); Hemoglobin 14.2 g/dL (12.0-15.0); Immature Granulocyte Absolute 0.04 K/mm3 (0.00-0.031); Immature Granulocyte Percent A 0.4 % (0-0.5); Lymphocytes Absolute Auto 1.53 K/mm3 (0.9-3.2); Lymphocytes Percent Auto 15.6 % (18.3-44.2); Mean Corpuscular HGB Conc 31.7 g/dl (32-36); Mean Corpuscular Hemoglobin 31.1 pg (26-34); Mean Corpuscular Volume 98.2 fl (80-100); Mean Platelet Volume 10.5 fl (7.4-10.4); Monocytes Absolute Auto 0.8 K/mm3 (0.1-0.6); Monocytes Percent Auto 8.3 % (2.6-8.5); Neutrophils Absolute Auto 7.3 K/mm3 (1.3-6.7); Platelet Count Result 228 k/mm3 (150-375); Red Blood Count 4.56 M/mm3 (4.2-5.4); Red Cell Distribution Width 13.9 % (11.5-14.5); White Blood Count 9.8 K/mm3 (4.5-10.0)
[2024-12-01 14:15] LABS: Free T4 Free Thyroxine 1.16 ng/dL (0.78-2.19); Vitamin D 25 Hydroxy 17.8 ng/mL
== END 2024-12-01 09:16 | disposition home or self-care (01) ==
LOC: ANHGOSHLAB 09:16
PROVIDERS: PCP Family Medicine; Visit Provider Nurse Practitioner Family
DX: E03.9 Hypothyroidism, unspecified (principal); E55.9 Vitamin D deficiency, unspecified; I10 Essential (primary) hypertension; E78.5 Hyperlipidemia, unspecified
CPT/HCPCS: 36415; 80053; 82306; 84439; 84443; 85025